=== PATIENT | male | born 1950 | race Caucasian/White ===

== ENCOUNTER → 2019-11-27 08:19 | Outpatient (BNVA) | payer MEDICARE, OTHER, SELFPAY | PROVIDERS: Family Provider Family Medicine; PCP Family Medicine; Visit Provider Internal Medicine Cardiovascular Disease | DX: E78.2 Mixed hyperlipidemia (principal) | CPT/HCPCS: 80061; 80076 ==

== ENCOUNTER 2020-06-02 10:14 | Outpatient (CLI) | payer MEDICARE, OTHER, SELFPAY ==
--- NOTE | 2020-06-02 10:38 | XR_ITS ---
WS: [id number] HIP WITH PELVIS RIGHT TECHNIQUE: 3 views of the right hip with pelvis CLINICAL INFORMATION: PAIN IN RIGHT HIP COMPARISON: None. FINDINGS: Mild osteoarthritis right hip. No acute fractures. Osteopenia. XR/XR hip RT 2-3V wo/w pel* [id number] IMPRESSION: Mild degenerative arthritis right hip.
== END 2020-06-02 10:15 | disposition home or self-care (01) ==
LOC: RADWPI 10:17
PROVIDERS: Family Provider Family Medicine; PCP Family Medicine; Visit Provider Nurse Practitioner Family
DX: M16.11 Unilateral primary osteoarthritis, right hip (principal)
CPT/HCPCS: 73502

== ENCOUNTER 2020-07-29 06:00 | Outpatient (RCR) | payer MEDICARE, OTHER, SELFPAY | END 2020-08-18 23:59 | disposition home or self-care (01) | LOC: SPT 06:00 | PROVIDERS: Family Provider Family Medicine; PCP Family Medicine; Referring Provider Physical Medicine & Rehabilitation; Visit Provider Physical Medicine & Rehabilitation | DX: R29.898 Other symptoms and signs involving the musculoskeletal system (principal); M54.16 Radiculopathy, lumbar region; M62.81 Muscle weakness (generalized) | CPT/HCPCS: 97110; 97162; G0283 ==

== ENCOUNTER 2020-08-19 06:00 | Outpatient (RCR) | payer MEDICARE, OTHER, SELFPAY | END 2020-08-29 23:00 | disposition home or self-care (01) | LOC: SPT 06:00 | PROVIDERS: Family Provider Family Medicine; PCP Family Medicine; Referring Provider Physical Medicine & Rehabilitation; Visit Provider Physical Medicine & Rehabilitation | DX: M54.16 Radiculopathy, lumbar region (principal); M62.81 Muscle weakness (generalized) | CPT/HCPCS: 97110 ==

== ENCOUNTER → 2020-10-09 08:25 | Outpatient (BNVA) | payer MEDICARE, OTHER, SELFPAY | PROVIDERS: Family Provider Family Medicine; PCP Family Medicine; Visit Provider Internal Medicine Cardiovascular Disease | DX: E78.2 Mixed hyperlipidemia (principal) | CPT/HCPCS: 80061 ==

== ENCOUNTER → 2021-07-07 08:44 | Outpatient (BNVA) | payer MEDICARE, OTHER, SELFPAY | PROVIDERS: Family Provider Family Medicine; PCP Nurse Practitioner; Visit Provider Internal Medicine Cardiovascular Disease | DX: E78.5 Hyperlipidemia, unspecified (principal) | CPT/HCPCS: 80061 ==

== ENCOUNTER 2021-08-03 11:07 | Outpatient (CLI) | payer MEDICARE, OTHER, SELFPAY ==
[2021-08-03 11:41] VITALS: BMI 28.3
--- NOTE | 2021-08-03 11:42 | ECG_ITS ---
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 Interpretive Statements NAME OF STUDY: TREADMILL STRESS ECHOCARDIOGRAM INDICATION: Athrosclerotic Heart Disease PROCEDURE: At the baseline, the patient's blood pressure was 135/87 with a heart rate of 91. The baseline electrocardiogram showed normal sinus rhythm with normal ST-Ts. Poor R wave progression. The patient exercised for 8 minutes and 31 seconds on a standard Anjum protocol. Patient attained a maximum heart rate of 140 beats per minute( 94 % of the maximum predicted heart rate) with a blood pressure at the peak exercise of 203/96 mm Hg. The EKG at the peak exercise revealed no significant ST changes. Few exercise-induced PVCs are noted on the monitor. During the recovery phase, there were no new changes. Blood pressure at the end of the recovery phase was 125/70 mm Hg with a heart rate of 95 per minute. Echocardiographic pictures were taken at the baseline, immediately following the peak exercise and during the recovery phase. CONCLUSION: 1. Normal EKG response to treadmill exercise 2. No exercise-induced chest pain or cardiac arrhythmia 3. Fair exercise tolerance, attained a maximum of 10.2 METs 4. Please see separate report for the echocardiographic response to exercise. Electronically Signed On 08-04-2021 22:22:48 MAILROOM ASSISTANT by Jovita Castle M.D. [id number]
--- NOTE | 2021-08-03 12:15 | USCV_ITS ---
Stress Echo Jamal Castillo Age: 71 Gender: M : 1950 Exam Date: 08/03/2021 11:54 Ordering Phys: Jovita Castle MD ([email or web address]) Technologist: Andreina Dubois [place] [facility] [place]ication: ashd Rhythm: Sinus Patient History: ashd Cardiac Medications: Medications in past 24 hours: Aspirin, Statin Contrast: Stress Results Protocol: Anjum Total dose(mL): Exercise Duration (min:sec): 8:31 METS: 10.2 Resting HR: 91 Resting BP: 135 / 87 Peak HR: 140 Peak BP: 203 / 104 Max Predicted HR: 148 95 % Max Predicted HR Target HR: 126 Double Product: [id number] Stress Summary: The patient's target heart rate was achieved BP Response: Normal Reason for Termination: Maximal effort/unable to continue Cardiac Symptoms: None ECG Analysis Resting ECG: Please see separate report Stress ECG: Please see separate report Arrhythmia: Please see separate report MEASUREMENTS (Male/Female) Normal Values FINDINGS The baseline echocardiogram revealed normal LV size and ejection fraction around 55% no gross wall motion normalities are noted. The aortic root was of normal size. No pericardial effusion. Paroxysmal nocturnal dyspnea peak exercise, there is good augmentation of all the segments with a normal exercise-induced wall motion abnormalities. During the recovery phase, no new changes are noted. CONCLUSIONS 1. Normal echocardiographic response to treadmill exercise. 2. No significant coronary ischemia, based on the above finding Dr Jovita Castle MD FAC (Electronically Signed) Final Date: 03 August 2021 21:18 S
[2021-08-03 13:19] VITALS: BP 125/70; PULSE 94
== END 2021-08-03 11:08 | disposition home or self-care (01) ==
LOC: CDL 11:10
PROVIDERS: PCP Nurse Practitioner; Visit Provider Internal Medicine Cardiovascular Disease
DX: I25.10 Atherosclerotic heart disease of native coronary artery without angina pectoris (principal)
CPT/HCPCS: 93017; 93350

== ENCOUNTER → 2022-07-01 09:35 | Outpatient (BNVA) | payer MEDICARE, OTHER, SELFPAY | PROVIDERS: PCP Nurse Practitioner; Visit Provider Internal Medicine Cardiovascular Disease | DX: I25.10 Atherosclerotic heart disease of native coronary artery without angina pectoris (principal); I10 Essential (primary) hypertension; I25.2 Old myocardial infarction; E78.2 Mixed hyperlipidemia; Z98.890 Other specified postprocedural states | CPT/HCPCS: 93005; 99214 ==

== ENCOUNTER 2023-06-27 11:59 | Outpatient (RCR) | payer MEDICARE, OTHER, SELFPAY | END 2023-07-19 23:59 | disposition home or self-care (01) | LOC: SPT 11:59 | PROVIDERS: Visit Provider Physical Medicine & Rehabilitation | DX: M47.812 Spondylosis without myelopathy or radiculopathy, cervical region (principal); M75.41 Impingement syndrome of right shoulder; M54.12 Radiculopathy, cervical region; R20.0 Anesthesia of skin | CPT/HCPCS: 97110; 97140; 97162 ==

== ENCOUNTER → 2023-06-30 10:43 | Outpatient (BNVA) | payer MEDICARE, OTHER, SELFPAY | PROVIDERS: Visit Provider Internal Medicine Cardiovascular Disease | DX: R07.9 Chest pain, unspecified (principal); I25.10 Atherosclerotic heart disease of native coronary artery without angina pectoris; I10 Essential (primary) hypertension; E78.2 Mixed hyperlipidemia; Z98.890 Other specified postprocedural states | CPT/HCPCS: 93005; 99214 ==

== ENCOUNTER 2023-07-15 13:54 | Emergency (ER) | payer MEDICARE, OTHER, SELFPAY ==
[2023-07-15 14:05] VITALS: BP 168/99; PULSE 88; RESP 18; TEMP 36.6; O2SAT 96; BMI 29.0
--- NOTE | 2023-07-15 15:30 | W.ED.NEUROSD ---
HPI - Neuro Symptoms/Deficit General: Chief Complaint: Neuro Symptoms/Deficit Stated Complaint: possible TIA Time Seen by Provider: 07/15/23 14:37 Source: patient Mode of arrival: ambulatory History of Present Illness: 73-year-old male presents to the emergency room with complaints of near syncopal episode earlier today. He was at physical therapy at the time he was rotating his head to the left and right holding a position at the end of range of motion and had a brief episode where he seemed to nonresponsive estimated about 30 seconds that resolved he had no sequela since then he has not had any chest pain. No fevers sweats or chills. No nausea or vomiting. He does have a history of heart disease. He is currently on a statin aspirin and Plavix. No other symptoms no seizure-like activity Onset (ago): hour(s) Severity: similar to previous episodes Quality: other (Briefly nonresponsive) Relieving factors: none Exacerbating factors: none Context: sudden onset On Anticoagulants: No Associated symptoms: Deny chest pain, cough, diaphoresis, fevers/chills, headache(s), anorexia, malaise, nausea, seizures, short of breath, syncope, tingling, vertigo, vomiting or weakness Review of Systems Const: Denies: fever(s), chills, malaise or diaphoresis Card: Denies: chest pain or syncope Resp: Denies: dyspnea GI: Denies: abdominal pain, nausea or vomiting : Denies: dysuria, urinary frequency or urinary urgency Musc: Denies: neck pain or back pain Skin/Breast: Denies: rash Neuro: Denies: headache(s) or vertigo PFS ED PFSH: Medical History ASHD (arteriosclerotic heart disease) Hyperlipidemia Hypertension Myocardial infarction Surgical History H/O arthroscopic knee surgery History of varicose vein stripping Family History Father CAD (coronary artery disease) Brother Cancer Denies family history of Diabetes Clotting disorder Dementia Chronic kidney disease (CKD) Suicide Anesthesia complication Bleeding disorder Lung disease Stroke Social History Smoking and tobacco/nicotine status: never used tobacco/nicotine Alcohol intake: current Alcohol intake frequency: holidays/special occasions only Substance/Drug Use: never NIH stroke score NIHSS: Level Of Consciousness - 1a: 0 Level Of Consciousness Questions - 1b: Both Correct Level Of Consciousness Commands - 1c: Both Correct Best Gaze - 2: Normal Visual Goodman - 3: No Visual Loss Facial Palsy - 4: Normal Motor Arm Right - 5: No Drift Motor Arm Left - 5: No Drift Motor Leg Right - 6: No Drift Motor Leg Left - 6: No Drift Limb Ataxia - 7: Absent Sensory - 8: Normal Best Language - 9: No Aphasia Dysarthia - 10: Normal Extinction And Inattention - 11: 0 Score: Total Score: 0 Physical Exam Const: COMMON NORMALS: no acute distress GENERAL APPEARANCE: cooperative and comfortable ORIENTATION/CONSCIOUSNESS: Yes awake, Yes oriented to person, Yes oriented to place and Yes oriented to time HENMT: COMMON NORMALS: normocephalic, atraumatic and hearing grossly normal bilaterally HEAD & SCALP: normocephalic and atraumatic Resp: COMMON NORMALS: normal respiratory effort, No retractions, No use of accessory muscles and clear to auscultation bilaterally AUSCULTATION: clear to auscultation bilaterally Cardio: COMMON NORMALS: regular rate, regular rhythm and No murmurs present (Cardio) RATE: regular rate RHYTHM: regular rhythm GI: COMMON NORMALS: Soft to palpation and No hepatosplenomegaly present AUSCULTATION: Yes normoactive bowel sounds PALPATION: Yes Soft to palpation, No Tenderness to palpation present (GI), No Guarding due to palpation present (GI) and Yes No hepatosplenomegaly present Extremity: COMMON NORMALS: normal to inspection, capillary refill normal, no clubbing, cyanosis or edema, no calf tenderness and no pedal edema Neuro: SENSORIUM/ORIENTATION: Yes oriented to person, Yes oriented to place and Yes oriented to time Skin: COMMON NORMALS: no rashes or lesions noted GENERAL SKIN EXAM: no rashes or lesions noted Course Vital Signs: Vital signs: Vital Signs Temperature 97.9 F 07/15/23 14:05 Pulse Rate 83 07/15/23 16:04 Respiratory Rate 18 07/15/23 14:05 Blood Pressure 144/78 07/15/23 16:04 Pulse Oximetry 96 07/15/23 14:05 Oxygen Delivery Me thod Room Air 07/15/23 14:05 MDM - Neuro Symptoms/Deficit Medical Decision Making No new symptoms at this time while he does have some residual symptoms from his previous stroke he and his both agree at this point he is pretty much at his baseline. No significant findings on evaluation. No acute bleed on the CT. He is already on dual platelet therapy and statin continue same for now. Follow-up as neurology. Medical Records I reviewed the patient's medical records. Lab Data I reviewed the patient's lab results. 07/15/23 13:50 07/15/23 13:[address] 07/15/23 15:31 IMPRESSION: No acute intracranial abnormality. Chronic microvascular ischemic changes. Head/Neck CTA 07/15/23 15:50 IMPRESSION: No acute abnormality. Moderate to severe stenosis of the left internal carotid artery in the cavernous portion by calcified plaque. IMPRESSION: No stenosis or occlusion. REFERENCES: NASCET CRITERIA. The degree of stenosis in the cervical segment of the internal carotid artery is based on NASCET criteria. Normal is no stenosis. Mild is less than 50% stenosis. Moderate is 50-69% stenosis. Severe is 70% to 99% stenosis. Total occlusion is no detectable patent lumen. Laboratory Results WBC 7.20 10^3/uL (3.29-11.43) 07/15/23 13:50 RBC 4.95 10^6/uL (3.85-5.65) 07/15/23 13:50 Hgb 14.20 g/dL (11.27-16.99) 07/15/23 13:50 Hct 43.1 % (37-53) 07/15/23 13:50 MCV 87.1 fl (82-101) 07/15/23 13:50 MCH 28.7 pg (27-33) 07/15/23 13:50 MCHC 32.9 g/dL (30-55) 07/15/23 13:50 RDW 14.6 % (12.1-15.1) 07/15/23 13:50 Plt Count 235 10^3/cmm (157-399) 07/15/23 13:50 MPV 10.2 fL (7.4-10.4) 07/15/23 13:50 Neut % (Auto) 69.0 % 07/15/23 13:50 Lymph % (Auto) 19.4 % 07/15/23 13:50 Polk % (Auto) 7.5 % 07/15/23 13:50 Eos % (Auto) 3.1 % 07/15/23 13:50 Baso % (Auto) 0.7 % 07/15/23 13:50 Neut # (Auto) 4.97 10^3/uL (1.8-7.7) 07/15/23 13:50 Lymph # (Auto) 1.4 10^3/uL (0.8-4.8) 07/15/23 13:50 Polk # (Auto) 0.5 10^3/uL (0.2-0.9) 07/15/23 13:50 Eos # (Auto) 0.2 10^3/uL (0.0-0.8) 07/15/23 13:50 Baso # (Auto) 0.1 10^3/uL (0.0-0.1) 07/15/23 13:50 Nucleated RBC % (auto) 0 % 07/15/23 13:50 Nucleated RBCs # 0.0 /100WBC 07/15/23 13:50 Sodium 139 mmol/L (136-145) 07/15/23 13:50 Potassium 4.0 mmol/L (3.5-5.1) 07/15/23 13:50 Chloride 102 mmol/L (98-107) 07/15/23 13:50 Carbon Dioxide 26 mmol/L (22-29) 07/15/23 13:50 Anion Gap 15.0 (5-19) 07/15/23 13:50 BUN 14 mg/dL (8-23) 07/15/23 13:50 Creatinine 0.8 mg/dL (0.7-1.2) 07/15/23 13:50 GFR Calculation Not Reportable 07/15/23 13:50 Glucose 151 mg/dL (65-115) H 07/15/23 13:50 Calculated Osmolality 291 mOsm/kg (285-295) 07/15/23 13:50 Calcium 9.5 mg/dL (8.5-10.5) 07/15/23 13:50 Total Bilirubin 0.8 mg/dL (0.15-1.2) 07/15/23 13:50 AST 13 U/L (0-40) 07/15/23 13:50 ALT 9 U/L (0-41) 07/15/23 13:50 Alkaline Phosphatase 109 U/L (40-130) 07/15/23 13:50 Total Protein 7.2 g/dL (6.6-8.7) 07/15/23 13:50 Albumin 4.2 g/dL (3.5-5.2) 07/15/23 13:50 Globulin 3.0 g/dL (1.3-4.6) 07/15/23 13:50 Urine Color Yellow (Yellow) 07/15/23 16:32 Urine Appearance Clear (CLEAR) 07/15/23 16:32 Urine pH 5 (5-7) 07/15/23 16:32 Ur Specific [place] 1.015 (1.005-1.030) 07/15/23 16:32 Urine Protein Neg (Negative) 07/15/23 16:32 Urine Glucose (UA) Norm (Normal) 07/15/23 16:32 Urine Ketones Negative (Negative) 07/15/23 16:32 Urine Blood Neg (Negative) 07/15/23 16:32 Urine Nitrate Negative (Negative) 07/15/23 16:32 Urine Bilirubin Neg (Negative) 07/15/23 16:32 Urine Urobilinogen Norm mg/dL (Negative) 07/15/23 16:32 Ur Leukocyte Esterase Negative (Negative) 07/15/23 16:32 All radiology interpretation(s) finalized by discharge Discharge Plan Discharge Patient Disposition: Home Clinical Impression: Transient cerebral ischemia, ASHD (arteriosclerotic heart disease) Condition: Stable Prescriptions: No Action omeprazole 40 mg capsule,delayed release(DR/EC) 40 mg PO QAM atorvastatin 20 mg tablet 20 mg PO QPM clopidogrel 75 mg tablet 75 mg PO QPM aspirin [Adult Low Dose Aspirin] 81 mg tablet,delayed release (DR/EC) 81 mg PO QPM nitroglycerin 0.4 mg tablet, sublingual 0.4 mg sublingual Q5M PRN (Reason: chest pain) tamsulosin 0.4 mg capsule 0.4 mg PO BEDTIME losartan 50 mg tablet 50 mg PO QPM Discharge Orders: Discharge ED (Routine); Ordered 07/15/23 Ordered By: Kb Felix Referrals: Latrice Erazo FNP [Primary Care Provider] - Discharge Diet: Usual diet Patient Instructions: Opioid Safety, Pain Management Activity Restrictions/Additional Instructions: Thank you for choosing [facility] for your healthcare needs today. Please realize this is an emergency room and that we are providing you with a medical screening exam and this may not be complete and all inclusive of all the testing and or work up that you may need to determine your ailment or severity of your illness. It is very important that you follow up as instructed or that you return to the Emergency Department should you have concerns or if your condition changes or worsens in any way. CT and CTA of the head and neck were done. There is some mild occlusions in the vessels in the neck none that are stenotic at this point. 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 Coding Level of Care Code ED Hall Monitor for Brittney Srinivasan
--- NOTE | 2023-07-15 15:31 | ECG_ITS ---
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 Measurements Intervals [place] Rate: 83 P: 59 OR: 188 QRS: -17 QRSD: 99 T: 69 QT: 370 QTc: 437 Interpretive Statements SINUS RHYTHM NONSPECIFIC T-WAVE ABNORMALITY Compared to ECG 06/30/2023 10:50:12 T-wave abnormality now present Electronically Signed On 07-15-2023 16:25:40 CDT by Gisela Edmonds M.D. [id number]
--- NOTE | 2023-07-15 15:31 | CTR_ITS ---
PROCEDURE INFORMATION: Exam: CT Head Without Contrast Exam date and time: 07/15/2023 3:41 PM Age: 73 years old Clinical indication: Visual disturbance and walking, difficulty; Additional info: TIA TECHNIQUE: Imaging protocol: Computed tomography of the head without contrast. Radiation optimization: All CT scans at this facility use at least one of these dose optimization techniques: automated exposure control; mA and/or kV adjustment per patient size (includes targeted exams where dose is matched to clinical indication); or iterative reconstruction. REPORTING DATA: Count of CT and Cardiac NM exams in prior 12 months: This patient has received 0 known CTs and 0 known cardiac nuclear medicine studies in the 12 months prior to the current study. COMPARISON: CT head wo con* [id number] 08/29/2019 6:26 PM RADIATION DOSE METRICS: Total DLP (mGy-cm): 1060.45 FINDINGS: Brain: There are mild periventricular and subcortical lucencies consistent with chronic microvascular ischemic changes.The al-white differentiation is maintained. No hemorrhage. No edema. Cerebral ventricles: No ventriculomegaly. Paranasal sinuses: Visualized sinuses are unremarkable. No fluid levels. Mastoid air cells: Visualized mastoid air cells are well aerated. Orbital cavities: Bilateral cataract surgery. Bones/joints: Unremarkable. No acute fracture. Soft tissues: Unremarkable. CT/CT head wo con* [id number] IMPRESSION: No acute intracranial abnormality. Chronic microvascular ischemic changes.
--- NOTE | 2023-07-15 15:50 | CTR_ITS ---
PROCEDURE INFORMATION: Exam: CTA Head With Contrast, Arteriography Exam date and time: 07/15/2023 4:59 PM Age: 73 years old Clinical indication: Dizziness and giddiness and weakness; Additional info: TIA TECHNIQUE: Imaging protocol: Computed tomographic angiography of the head with contrast. Exam focused on the arteries. 3D rendering (Not supervised by radiologist): MIP and/or 3D reconstructed images were created by the technologist. Radiation optimization: All CT scans at this facility use at least one of these dose optimization techniques: automated exposure control; mA and/or kV adjustment per patient size (includes targeted exams where dose is matched to clinical indication); or iterative reconstruction. Contrast material: OMNIPAQUE 350; Contrast volume: 100 ml; Contrast route: INTRAVENOUS (IV); REPORTING DATA: Count of CT and Cardiac NM exams in prior 12 months: This patient has received 0 known CTs and 0 known cardiac nuclear medicine studies in the 12 months prior to the current study. COMPARISON: CT head wo con* [id number] 07/15/2023 3:41 PM RADIATION DOSE METRICS: Total DLP (mGy-cm): 497.46 FINDINGS: ANTERIOR CIRCULATION: Right internal carotid artery: Intracranial segment is patent with no significant stenosis. No aneurysm. Right middle cerebral artery: No occlusion or significant stenosis. No aneurysm. Right anterior cerebral artery: No occlusion or significant stenosis. No aneurysm. Left internal carotid artery: Moderate to severe stenosis in the cavernous portion of left internal carotid artery. Left middle cerebral artery: No occlusion or significant stenosis. No aneurysm. Left anterior cerebral artery: No occlusion or significant stenosis. No aneurysm. POSTERIOR CIRCULATION: Right vertebral artery: No occlusion or significant stenosis. No aneurysm. Left vertebral artery: No occlusion or significant stenosis. No aneurysm. Basilar artery: No occlusion or significant stenosis. No aneurysm. Right posterior cerebral artery: No occlusion or significant stenosis. No aneurysm. Left posterior cerebral artery: No occlusion or significant stenosis. No aneurysm. Brain: No definite mass, mass effect, or midline shift. Cerebral ventricles: No ventriculomegaly. Bones/joints: Unremarkable. No acute fracture. Soft tissues: Unremarkable. PROCEDURE INFORMATION: Exam: CTA Neck With Contrast Exam date and time: 07/15/2023 4:59 PM Age: 73 years old Clinical indication: Dizziness and giddiness and weakness; Additional info: TIA TECHNIQUE: Imaging protocol: Computed tomographic angiography of the neck with contrast. Exam focused on the cervical segments of the vasculature. 3D rendering (Not supervised by radiologist): MIP and/or 3D reconstructed images were created by the technologist. Radiation optimization: All CT scans at this facility use at least one of these dose optimization techniques: automated exposure control; mA and/or kV adjustment per patient size (includes targeted exams where dose is matched to clinical indication); or iterative reconstruction. Contrast material: OMNIPAQUE 350; Contrast volume: 100 ml; Contrast route: INTRAVENOUS (IV); REPORTING DATA: Count of CT and Cardiac NM exams in prior 12 months: This patient has received 0 known CTs and 0 known cardiac nuclear medicine studies in the 12 months prior to the current study. COMPARISON: CT head wo con* [id number] 07/15/2023 3:41 PM RADIATION DOSE METRICS: Total DLP (mGy-cm): 0.01 FINDINGS: Right common carotid artery: No stenosis. No dissection or occlusion. Right internal carotid artery: No stenosis of the extracranial segment. No dissection or occlusion. Right external carotid artery: No occlusion or stenosis of the origin. Left common carotid artery: No stenosis. No dissection or occlusion. Left internal carotid artery: No stenosis of the extracranial segment. No dissection or occlusion. Left external carotid artery: No occlusion or stenosis of the origin. Right vertebral artery: No stenosis. No dissection or occlusion. Left vertebral artery: No stenosis. No dissection or occlusion. Soft tissues: Normal. No significant soft tissue swelling. Bones/joints: No acute fracture. CT/CT angio headneck* [id number] IMPRESSION: No acute abnormality. Moderate to severe stenosis of the left internal carotid artery in the cavernous portion by calcified plaque. IMPRESSION: No stenosis or occlusion. REFERENCES: NASCET CRITERIA. The degree of stenosis in the cervical segment of the internal carotid artery is based on NASCET criteria. Normal is no stenosis. Mild is less than 50% stenosis. Moderate is 50-69% stenosis. Severe is 70% to 99% stenosis. Total occlusion is no detectable patent lumen.
[2023-07-15 15:58] LABS: Basophils # 0.1 10^3/uL (0.0-0.1); Basophils % 0.7 %; Eosinophils # 0.2 10^3/uL (0.0-0.8); Eosinophils % 3.1 %; Hematocrit 43.1 % (37-53); Lymphocytes # 1.4 10^3/uL (0.8-4.8); Lymphocytes % 19.4 %; Mean Corpuscular HGB Conc 32.9 g/dL (30-55); Mean Corpuscular Hemoglobin 28.7 pg (27-33); Mean Corpuscular Volume 87.1 fl (82-101); Mean Platelet Volume 10.2 fL (7.4-10.4); Monocytes # 0.5 10^3/uL (0.2-0.9); Monocytes % 7.5 %; Neutrophils # 4.97 10^3/uL (1.8-7.7); Nucleated Red Blood Cells % 0 %; Platelet Count 235 10^3/cmm (157-399); Red Blood Count 4.95 10^6/uL (3.85-5.65); Red Cell Distribution Width 14.6 % (12.1-15.1)
[2023-07-15 16:04] VITALS: BP 128/77; BP 144/78; BP 150/77; PULSE 83; PULSE 89; PULSE 99
[2023-07-15 16:24] LABS: Alanine Aminotransferase 9 U/L (0-41); Albumin Level 4.2 g/dL (3.5-5.2); Alkaline Phosphatase 109 U/L (40-130); Aspartate Amino Transferase 13 U/L (0-40); Blood Urea Nitrogen 14 mg/dL (8-23); Calcium 9.5 mg/dL (8.5-10.5); Carbon Dioxide 26 mmol/L (22-29); Chloride 102 mmol/L (98-107); Glucose 151 mg/dL (65-115); Osmolality Calculated 291 mOsm/kg (285-295); Sodium 139 mmol/L (136-145); Total Bilirubin 0.8 mg/dL (0.15-1.2); Total Protein 7.2 g/dL (6.6-8.7)
[2023-07-15] MEDS: iohexol 350 mg/mL 500 mL Btl (per mL) IV (16:33)
[2023-07-15 16:37] LABS: Add Urine Microscopic? NO; Charge for UA Resulting for Rev
[2023-07-15 16:44] LABS: Bilirubin Urine Neg (Negative); Blood Urine Neg (Negative); Glucose Urine UA Norm (Normal); Ketones Urine Negative (Negative); Leukocyte Esterase Urine Negative (Negative); Nitrate Urine Negative (Negative); Protein Urine Neg (Negative); Specific Gravity, Urine 1.015 (1.005-1.030); Urine Appearance Clear (CLEAR); Urine Color Yellow (Yellow); Urobilinogen Urine Norm (Negative); pH Urine 5 (5-7)
== END 2023-07-15 18:12 | disposition home or self-care (01) ==
PROVIDERS: Emergency Provider Family Medicine; PCP Nurse Practitioner Family
DX: G45.9 Transient cerebral ischemic attack, unspecified (principal); I25.10 Atherosclerotic heart disease of native coronary artery without angina pectoris; Z79.02 Long term (current) use of antithrombotics/antiplatelets; Z79.82 Long term (current) use of aspirin; E78.5 Hyperlipidemia, unspecified; I10 Essential (primary) hypertension; I25.2 Old myocardial infarction
CPT/HCPCS: 36415; 70450; 70496; 70498; 80053; 81003; 85025; 93005; 99285; Q9967

== ENCOUNTER 2023-08-03 12:00 | Outpatient (CLI) | payer MEDICARE, OTHER, SELFPAY ==
--- NOTE | 2023-08-03 12:02 | USCV_ITS ---
Jamal Castillo Age: 73 Gender: M : 1950 Exam Date: 08/03/2023 12:36 Ordering Phys: Kb Felix DO Technologist: CT Exam Location: [facility] [place] Indication: BP: 170 / 102 HR: 79 Rhythm: Sinus Technical Quality: Adequate MEASUREMENTS (Male / Female) Normal Values 2D ECHO LVOT Diameter 2.1 cm LV Ejection Fraction MOD 2C 49.7 % LV Ejection Fraction 2C AL 51.2 % LA Diameter 4.0 cm Aorta at Sinotubular Diameter 3.2 cm IVC Diameter 1.6 cm M-MODE Aortic Annulus Diameter 3.9 cm LA Ao Ratio MM 1.1 MV E Point Septal Separation 1.0 cm DOPPLER AV Peak Velocity 137.0 cm/s LVOT Peak Velocity 108.0 cm/s AV Area Cont Eq vti 3.1 cm squared AV Area Cont Eq pk 2.8 cm squared MV E' Velocity 9.0 cm/s TR Peak Velocity 90.0 cm/s TR Peak Gradient 3.2 mmHg TV Peak E Velocity 63.0 cm/s Right Atrial Pressure 3.0 mmHg Pulmonary Artery Systolic Pressu 6.2 mmHg PV Peak Velocity 116.0 cm/s FINDINGS Left Ventricle Normal left ventricular size and systolic function, EF 59 %. No regional wall motion abnormalities. Grade I/IV diastolic dysfunction (abnormal relaxation filling pattern), normal to mildly elevated filling pressures. Right Ventricle The right ventricle is normal in size and function. Right Atrium The right atrium is normal in size. Left Atrium The left atrium is normal in size. Mitral Valve No gross abnormalities noted Aortic Valve Thickened aortic valve. Tricuspid Valve Trace tricuspid valve regurgitation. Pulmonic Valve Trace pulmonary valve regurgitation. Pericardium Normal pericardium without effusion. Aorta Normal ascending aorta dimension. IVC The inferior vena cava appears normal. CONCLUSIONS Normal left ventricular size and systolic function, EF 59 %. No regional wall motion abnormalities. Grade I/IV diastolic dysfunction (abnormal relaxation filling pattern), normal to mildly elevated filling pressures. Thickened aortic valve. There is no pericardial effusion. There are no intracardiac masses. No similar previous studies are available for comparison Dr Jovita Castle MD [facility] (Electronically Signed) Final Date: 03 August 2023 22:41 S
== END 2023-08-03 12:01 | disposition home or self-care (01) ==
LOC: RAD 12:00
PROVIDERS: PCP Nurse Practitioner Family; Visit Provider Family Medicine
DX: G45.9 Transient cerebral ischemic attack, unspecified (principal); I51.89 Other ill-defined heart diseases; I35.8 Other nonrheumatic aortic valve disorders
CPT/HCPCS: 93306

== ENCOUNTER → 2023-08-17 08:40 | Outpatient (BNVA) | payer MEDICARE, OTHER, SELFPAY | PROVIDERS: PCP Nurse Practitioner Family; Referring Provider Family Medicine; Visit Provider Internal Medicine Cardiovascular Disease | DX: G45.9 Transient cerebral ischemic attack, unspecified (principal); R00.1 Bradycardia, unspecified; I49.1 Atrial premature depolarization; I49.3 Ventricular premature depolarization; I47.10 Supraventricular tachycardia, unspecified | CPT/HCPCS: 93225 ==

== ENCOUNTER → 2024-01-19 10:53 | Outpatient (BNVA) | payer MEDICARE, OTHER, SELFPAY | PROVIDERS: PCP Nurse Practitioner Family; Visit Provider Internal Medicine Cardiovascular Disease | DX: R07.9 Chest pain, unspecified (principal); I25.10 Atherosclerotic heart disease of native coronary artery without angina pectoris; E78.2 Mixed hyperlipidemia; I10 Essential (primary) hypertension; R61 Generalized hyperhidrosis; R55 Syncope and collapse | CPT/HCPCS: 93005; 99214 ==

== ENCOUNTER 2024-01-26 08:33 | Outpatient (CLI) | payer MEDICARE, OTHER, SELFPAY ==
--- NOTE | 2024-01-26 08:58 | ECG_ITS ---
[facility] Test Date: 2024-01-26 Pat Name: Jamal Castillo Department: Room: Gender: Male Residential Sales: Carol Naidu : 1950 Requested By: Jovita Castle Order Number: [id number] Irina MD: Jovita Castle M.D. Interpretive Statements NAME OF STUDY: EXERCISE SESTAMIBI STRESS TEST INDICATION: ASHD, PROCEDURE: The baseline electrocardiogram showed [normal sinus rhythm with normal ST Ts. Poor R wave progression . At the baseline, the patient's blood pressure was 137/79 mm Hg with a heart rate of 83. The patient exercised for 6 minutes and 59-second on a standard Anjum protocol. Patient attained a maximum heart rate of 136 beats per minute(93% of the maximum predicted heart rate) with a blood pressure at the peak exercise of 195/82 mm Hg. The EKG at the peak exercise revealed some nonspecific ST changes. Patient did not have any chest pain or any significant arrhythmis with the exercise Sestamibi was injected 1 minute prior to the peak exercise During the recovery phase, there were no new changes. Blood pressure at the end of the recovery phase was 154/75 mm Hg with a heart rate of 91 per minute. CONCLUSION: 1. Nonspecific EKG changes with the [treadmill exercise 2. No exercise-induced chest pain or cardiac arrhythmia 3. Fair exercise tolerance, attained a maximum of 10.2 METs 4. Sestamibi/Sestamibi perfusion results pending; see separate report. Electronically Signed On 01-28-2024 18:22:56 CDT by Jovita Castle M.D. [id number]
--- NOTE | 2024-01-26 08:58 | NMCV_ITS ---
NM estiven perf SPECT r/s* [id number] Jamal Castillo Age: 74 Gender: M : 1950 Exam Date: 01/26/2024 09:34 Ordering Phys: Jovita Castle MD ([email or web address]) Technologist: NIRALI Frances Exam Location: [facility] Indications: CORONARY ANGIOPLASTY STATUS STRESS TEST [facility] IMAGE PROTOCOL Rest/Stress 1 Exercise Day Radiopharmaceutical Dose (mCi) Administration Site Administered by Rest: Tc-99m 10.9 IV NIRALI Frances Sestamibi Stress:Tc-99m 32.8 IV NIRALI Mckeon Sestamibi Rest: 26-Jan-2024 60 Discovery 630 Stress: 26-Jan-2024 30 Discovery 630 Radiopharmaceutical was injected at 86 % maximum heart rate. Images obtained in supine and prone position. SPECT RESULTS Technical Quality: Excellent Raw Data Analysis: Normal Image Corrections: No attenuation or motion correction applied Summed Stress Score: 2 Summed Rest Score: 1 Summed Difference Score: 1 PERFUSION FINDINGS Small area of slightly decreased aseptic involving the mid inferior and mid inferolateral region. Subtle area reversibility was noted with the supine imaging, and the mid inferolateral region. However with the prone imaging, no significant reversible defects were noted. FUNCTIONAL RESULTS (calculated via Gated SPECT) Stress Image LV EF (%): 61 Stress EDV (mL):87 TID: 0.72 Stress ESV (mL):34 FUNCTIONAL FINDINGS: Segmental wall motion analysis revealing no gross wall motion abnormalities IMPRESSIONS 1. Myocardial perfusion imaging revealing small area of slightly decreased aseptic involving the mid inferolateral and mid inferior region with a subtle area reversibility, based on the polar plot. However with the SPECT imaging, no significant reversibility was noted. Most likely this is artifactual. 2. Normal LV ejection fraction of 61%. 3. LV wall motion analysis revealing no gross wall motion abnormalities. 4. Normal LV volume. Possibly no significant coronary ischemia, based on the above finding Dr Jovita Castle MD FACC (Electronically Signed) Final Date: 26 Jan 2024 12:52 S
[2024-01-26 08:59] VITALS: BMI 29.0
[2024-01-26 10:37] VITALS: BP 154/75; PULSE 92
== END 2024-01-26 08:34 | disposition home or self-care (01) ==
LOC: CDL 08:34
PROVIDERS: PCP Nurse Practitioner Family; Visit Provider Internal Medicine Cardiovascular Disease
DX: Z98.61 Coronary angioplasty status (principal)
CPT/HCPCS: 36415; 78452; 93017; A9500

== ENCOUNTER 2024-02-14 10:24 | Outpatient (RCR) | payer MEDICARE, OTHER, SELFPAY | END 2024-02-17 23:59 | disposition home or self-care (01) | LOC: SOT 10:24 | PROVIDERS: PCP Nurse Practitioner Family; Visit Provider Orthopaedic Surgery | DX: M79.642 Pain in left hand (principal); M79.641 Pain in right hand | CPT/HCPCS: 97110; 97166; 97530 ==

== ENCOUNTER 2024-02-18 06:00 | Outpatient (RCR) | payer MEDICARE, OTHER, SELFPAY | END 2024-03-18 23:59 | disposition home or self-care (01) | LOC: SOT 06:00 | PROVIDERS: PCP Nurse Practitioner Family; Visit Provider Orthopaedic Surgery | DX: M79.642 Pain in left hand (principal); M79.641 Pain in right hand | CPT/HCPCS: 97022; 97110 ==

== ENCOUNTER 2024-06-25 12:51 | Outpatient (CLI) | payer MEDICARE, OTHER, SELFPAY ==
--- NOTE | 2024-06-25 12:54 | MR_ITS ---
WS: [id number] MRI RIGHT SHOULDER HISTORY: RIGHT SHOULDER IMPINGEMENT COMPARISON: None available. TECHNIQUE: Multiplanar sequences of the shoulder joint are submitted. Moderate AC joint arthritis. AC joint osteophytes encroaching upon the supraspinatus tendon and muscl e. Small amount of fluid within the joint space. There is mild subacromial impingement. Moderate flui d in the subacromial-subdeltoid bursa. No os acromion. Normal position of the biceps tendon. Moderate degenerative changes at the glenohumeral joint. Joint space is narrowed with small osteophyt es at the glenoid and humeral head. Loss of cartilage involving the glenoid. Mild asymmetric widening of the superior glenohumeral joint. No significant rotator cuff muscle atrophy is identified. There is mild tendinopathy in the distal engel praspinatus tendon. No rotator cuff tendon tear. Mild fraying of the labrum. No labral tear. MR/MR shoulder RT wo con* [id number] IMPRESSION: 1. Moderate AC joint arthritis with narrowing and osteophytosis. Osteophytes e ncroach upon the supraspinatus muscle and tendon. 2. Mild subacromial impingement. 3. Fluid in the subacromial and subdeltoid bursa. 4. Mild tendinopathy in the supraspinatus tendon. No rotator cuff tendon tears . 5. Moderate degenerative changes at the glenohumeral joint. Loss of cartilage with asymmetric widening of the joint space. 6. No definite labral tears are identified.
== END 2024-06-25 12:52 | disposition home or self-care (01) ==
LOC: RAD 12:52
PROVIDERS: PCP Nurse Practitioner Family; Visit Provider Orthopaedic Surgery
DX: M19.011 Primary osteoarthritis, right shoulder (principal); M75.41 Impingement syndrome of right shoulder
CPT/HCPCS: 73221

== ENCOUNTER → 2024-07-25 09:43 | Outpatient (BNVA) | payer MEDICARE, OTHER, SELFPAY | PROVIDERS: PCP Nurse Practitioner Family; Visit Provider Internal Medicine Cardiovascular Disease | DX: I25.10 Atherosclerotic heart disease of native coronary artery without angina pectoris (principal); E78.2 Mixed hyperlipidemia; I10 Essential (primary) hypertension; Z98.890 Other specified postprocedural states | CPT/HCPCS: 99214 ==

== ENCOUNTER 2024-08-04 10:20 | Emergency (ER) | payer MEDICARE, OTHER, SELFPAY ==
[2024-08-04] VITALS (7 sets, daily range): BP systolic 121–125; BP diastolic 70–72; PULSE 45–60; RESP 18; TEMP 36.7; O2SAT 93–97; BMI 29.0
--- NOTE | 2024-08-04 10:51 | CTR_ITS ---
PROCEDURE INFORMATION: Exam: CT Cervical Spine Without Contrast Exam date and time: 08/04/2024 11:01 AM Age: 74 years old Clinical indication: Injury or trauma; Fall; Blunt trauma TECHNIQUE: Imaging protocol: Computed tomography of the cervical spine without contrast. Radiation optimization: All CT scans at this facility use at least one of these dose optimization techniques: automated exposure control; mA and/or kV adjustment per patient size (includes targeted exams where dose is matched to clinical indication); or iterative reconstruction. COMPARISON: CT angio headneck* [id number] 07/15/2023 4:59 PM RADIATION DOSE METRICS: Total DLP (mGy-cm): 1090.1 FINDINGS: Bones: Alignment and vertebral body heights are within normal limits. There is a mild compression deformity of the superior endplate of T2, further discussed in the thoracic spine report, dictated separately. No acute cervical spine fractures. Discs/Spinal canal/Neural foramina: There are mnjd-[id number]-[id number] diffuse degenerative changes producing multilevel foraminal stenosis and mild central spinal stenosis at C3-C4, C5-C6 and C6-C7. Lungs: A calcified granuloma is noted within the left upper lobe Soft tissues: Unremarkable. CT/CT cervical spin wo con* [id number] IMPRESSION: 1. No evidence of acute cervical spine fracture or subluxation. 2. [id number] cervical spondylosis
--- NOTE | 2024-08-04 10:51 | CTR_ITS ---
PROCEDURE INFORMATION: Exam: CT Head Without Contrast Exam date and time: 08/04/2024 11:01 AM Age: 74 years old Clinical indication: Injury or trauma; Fall; Blunt trauma (contusions or hematomas); Consciousness not specified TECHNIQUE: Imaging protocol: Computed tomography of the head without contrast. Radiation optimization: All CT scans at this facility use at least one of these dose optimization techniques: automated exposure control; mA and/or kV adjustment per patient size (includes targeted exams where dose is matched to clinical indication); or iterative reconstruction. COMPARISON: 1. CT angio headneck* [id number] 07/15/2023 4:[address] head wo con* [id number] 07/15/2023 3:41 PM RADIATION DOSE METRICS: Total DLP (mGy-cm): 1348.3 FINDINGS: Brain: There is decreased attenuation within the periventricular white matter suspicious for chronic microvascular ischemic changes. No hemorrhage. No mass effect. Cerebral ventricles: No ventriculomegaly. Paranasal sinuses: Visualized sinuses are unremarkable. No fluid levels. Mastoid air cells: Visualized mastoid air cells are well aerated. Bones: Unremarkable. No acute fracture. Soft tissues: Unremarkable. CT/CT head wo con* [id number] IMPRESSION: No acute intracranial abnormality.
--- NOTE | 2024-08-04 10:51 | CTR_ITS ---
PROCEDURE INFORMATION: Exam: CT Thoracic Spine Without Contrast Exam date and time: 08/04/2024 11:05 AM Age: 74 years old Clinical indication: Injury or trauma; Fall; Blunt trauma (contusions or hematomas) TECHNIQUE: Imaging protocol: Computed tomography of the thoracic spine without contrast. Radiation optimization: All CT scans at this facility use at least one of these dose optimization techniques: automated exposure control; mA and/or kV adjustment per patient size (includes targeted exams where dose is matched to clinical indication); or iterative reconstruction. COMPARISON: Lateral chest radiograph obtained on 08/13/2019. No other prior thoracic spine imaging available. RADIATION DOSE METRICS: Total DLP (mGy-cm): 1147.68 FINDINGS: Subtle nondisplaced fracture in the coronal plane through the anterosuperior aspect of T2 vertebral body (series 7, image 25; series 4, image 26). No gross involvement of the posterior vertebral cortex or the posterior elements. Slight loss of height involving a few midthoracic vertebra that appear chronic. No bony stenosis of the thoracic spinal canal is seen. Incidental note of multiple pulmonary granulomatous calcifications. Mild posterior basilar subpleural fibrosis and/or atelectasis also noted. CT/CT thoracic spin wo con* [id number] IMPRESSION: 1. Subtle acute nondisplaced fracture through the anterosuperior corner of T2 vertebral body. 2. Very slight loss of vertebral body height at several midthoracic levels appears chronic. Bones appear diffusely osteopenic.
[2024-08-04] MEDS: HYDROcodone-acetaminophen 5-325 mg Tablet 1 TAB PO (10:59)
--- NOTE | 2024-08-04 11:01 | ED_ITS ---
HPI - Fall General: Chief Complaint: Fall Stated Complaint: fall, head and back injury Time Seen by Provider: 08/04/24 10:42 Source: patient Mode of arrival: ambulatory Limitations: no limitations History of Present Illness: 74-year-old male states that he had fell off a 5 foot retaining wall backwards onto the ground. He states this happened just prior arrival he states he did hit his head states he had some neck and upper back pain since the fall denies any loss of consciousness denies headache but states he did hit his head pretty hard he is on Plavix. Denies any other injury he has been ambulatory Associated symptoms-after fall: Reports neck pain; Denies abdominal pain, chest pain or headache(s) Related Data Home Medications Medication Instructions Recorded Confirmed aspirin 81 mg tablet,delayed 81 mg PO QPM 07/03/20 07/15/23 release (Adult Low Dose Aspirin) atorvastatin 20 mg tablet 20 mg PO QPM 07/03/20 07/15/23 clopidogrel 75 mg tablet 75 mg PO QPM 07/03/20 07/15/23 omeprazole 40 mg capsule,delayed 40 mg PO QAM 07/03/20 07/15/23 release nitroglycerin 0.4 mg sublingual 0.4 mg sublingual Q5M PRN chest 07/02/21 07/15/23 tablet pain tamsulosin 0.4 mg capsule 0.4 mg PO BEDTIME 07/15/23 07/15/23 losartan 50 mg tablet 50 mg PO BID 10/18/23 Previous Rx's Medication Instructions Recorded metoprolol tartrate 25 mg tablet 12.5 mg (1/2 x 25 mg) PO BID #180 10/18/23 tabs amlodipine 2.5 mg tablet 2.5 mg PO DAILY #90 tabs 08/02/24 hydrocodone 5 mg-acetaminophen 325 1 tab PO Q6H PRN pain #14 tabs 08/04/24 mg tablet Allergies Allergy/AdvReac Type Severity Reaction Status Date / Time No Known Allergies Allergy Verified 08/04/24 10:40 Review of Systems Const: Denies: fever(s), chills, body aches or change in appetite ENMT: Denies: throat pain or dental pain Card: Denies: chest pain Resp: Denies: dyspnea GI: Denies: abdominal pain, nausea, vomiting or diarrhea Musc: Reports: neck pain and back pain Skin/Breast: Denies: rash Neuro: Denies: headache(s) PFSH ED PFSH: Medical History Myocardial infarction Hypertension ASHD (arteriosclerotic heart disease) Hyperlipidemia Surgical History H/O arthroscopic knee surgery History of varicose vein stripping Family History Father CAD (coronary artery disease) Brother Cancer Denies family history of Diabetes Clotting disorder Dementia Chronic kidney disease (CKD) Suicide Anesthesia complication Bleeding disorder Lung disease Stroke Social History Smoking and tobacco/nicotine status: never used tobacco/nicotine Alcohol intake: current Alcohol intake frequency: holidays/special occasions only Substance/Drug Use: never Physical Exam Const: COMMON NORMALS: no acute distress, patient oriented x3 and healthy appearing HENMT: COMMON NORMALS: normocephalic and atraumatic HEAD & SCALP: normocephalic and atraumatic Eye: COMMON NORMALS: Equal, round and reactive pupils present and EOMs intact bilaterally PUPIL: Yes Equal, round and reactive pupils present Neck/C-Spine: COMMON NORMALS: full ROM and supple Chest: COMMONS NORMALS: normal inspection of the chest and normal palpation of entire chest wall Resp: COMMON NORMALS: normal respiratory effort, No retractions, No use of accessory muscles and clear to auscultation bilaterally AUSCULTATION: clear to auscultation bilaterally Cardio: COMMON NORMALS: regular rate, regular rhythm and No murmurs present (Cardio) RATE: regular rate RHYTHM: regular rhythm GI: COMMON NORMALS: Normal to inspection, nondistended, normoactive bowel sounds present, Soft to palpation, non-tender and no masses PALPATION: Yes Soft to palpation Extremity: COMMON NORMALS: normal to inspection and full ROM Neuro: COMMON NORMALS: patient oriented x3, moves all extremities and no focal motor deficits Psych: COMMON NORMALS: mental status grossly normal, Normal thought process present and cooperative THOUGHT PROCESS: Normal thought process present Skin: COMMON NORMALS: no rashes or lesions noted and no wounds GENERAL SKIN EXAM: no rashes or lesions noted Course Vital Signs: Vital signs: Vital Signs Temperature 98.0 F 08/04/24 10:31 Pulse Rate 52 L 08/04/24 10:31 Respiratory Rate 18 08/04/24 10:31 Blood Pressure 121/70 08/04/24 10:31 Pulse Oximetry 96 08/04/24 10:31 Oxygen Delivery Me thod Room Air 08/04/24 10:31 MDM - Fall Medical Decision Making Patient presents here with T2 fracture from a fall I did speak to Dr. Liu he stable for discharge we will get him follow-up with him he is return if worsening he understands agrees to plan Medical Records I reviewed the patient's medical records. Lab Data Radiology Impressions Cervical Spine CT 08/04/24 10:51 IMPRESSION: 1. No evidence of acute cervical spine fracture or subluxation. 2. Yhca-xy-fxthbutz cervical spondylosis Head CT 08/04/24 10:51 IMPRESSION: No acute intracranial abnormality. Thoracic Spine CT 08/04/24 10:51 IMPRESSION: 1. Subtle acute nondisplaced fracture through the anterosuperior corner of T2 vertebral body. 2. Very slight loss of vertebral body height at several midthoracic levels appears chronic. Bones appear diffusely osteopenic. All radiology interpretation(s) finalized by discharge Discharge Plan Discharge Patient Disposition: Home Clinical Impression: Fall, Fracture of thoracic spine Condition: Stable Prescriptions: New hydrocodone-acetaminophen 5-325 mg tablet 1 tab PO Q6H PRN (Reason: pain) Qty: 14 0RF No Action omeprazole 40 mg capsule,delayed release(DR/EC) 40 mg PO QAM atorvastatin 20 mg tablet 20 mg PO QPM clopidogrel 75 mg tablet 75 mg PO QPM aspirin [Adult Low Dose Aspirin] 81 mg tablet,delayed release (DR/EC) 81 mg PO QPM nitroglycerin 0.4 mg tablet, sublingual 0.4 mg sublingual Q5M PRN (Reason: chest pain) metoprolol tartrate 25 mg tablet 12.5 mg PO BID Qty: 180 3RF Rx Instructions: decreased to 12.5 from 25 10/18/23 losartan 50 mg tablet 50 mg PO BID Rx Instructions: increased to BID from daily 10/18/23 amlodipine 2.5 mg tablet 2.5 mg PO DAILY Qty: 90 3RF tamsulosin 0.4 mg capsule 0.4 mg PO BEDTIME Discharge Orders: Discharge ED (Routine); Ordered 08/04/24 Ordered By: Zachariah Maldonado Referrals: Marv Jay DO [Physician] - 4-7 days Erazo,JOSE MARTIN Pollard [Primary Care Provider] - Discharge Diet: Advance as tolerated Discharge Activity: Resume usual activity Patient Instructions: Thoracolumbar Fracture (ED), Opioid Safety Coding Level of Care Code ED Cruise Staff Member for Brittney Srinivasan
--- NOTE | 2024-08-06 09:13 | DCPLANNER ---
messaged ortho for er f/u
== END 2024-08-04 12:01 | disposition home or self-care (01) ==
PROVIDERS: Emergency Provider Emergency Medicine; PCP Nurse Practitioner Family
DX: S22.021A Stable burst fracture of second thoracic vertebra, initial encounter for closed fracture (principal); W17.89XA Other fall from one level to another, initial encounter; Z79.82 Long term (current) use of aspirin; I10 Essential (primary) hypertension; E78.5 Hyperlipidemia, unspecified; I25.2 Old myocardial infarction
CPT/HCPCS: 70450; 72125; 72128; 99284

== ENCOUNTER → 2024-08-09 12:46 | Outpatient (BNVA) | payer MEDICARE, OTHER, SELFPAY | PROVIDERS: PCP Nurse Practitioner Family; Referring Provider Emergency Medicine; Visit Provider Orthopaedic Surgery | DX: S22.020A Wedge compression fracture of second thoracic vertebra, initial encounter for closed fracture (principal); X58.XXXA Exposure to other specified factors, initial encounter | CPT/HCPCS: 72072; 99204 ==

== ENCOUNTER 2024-08-14 14:22 | Outpatient (CLI) | payer MEDICARE, OTHER, SELFPAY ==
--- NOTE | 2024-08-14 14:30 | MR_ITS ---
WS: [id number] MRI THORACIC SPINE WITHOUT CONTRAST TECHNIQUE: Sagittal T1, T2 and STIR imaging. Axial T2 imaging. Noncontrast imaging obtained. CLINICAL INFORMATION: spine frature COMPARISON: CT 08/04/2024 FINDINGS: Moderate thoracic kyphosis. Chronic anterior wedging in the midthoracic spine. Endplate Schmorl's nod es. Mild acute compression of the superior endplates of T1, T2, and T4. Approximately 20% loss vertebral body height at T4. Minimal compression at T1 and T2. No significant retropulsion. No significant central canal stenosis. Cord signal is normal. Adrenal glands are normal. Small to mod erate esophageal hiatal hernia. Normal caliber descending thoracic aorta. Moderate facet arthropathy lower thoracic spine. Shallow RIGHT paracentral protrusion T11-T12. MR/MR thoracic spin wo con* [id number] IMPRESSION: 1. Mild acute compression of the superior endplates T1, T2, and T4. 2. No significant central canal stenosis. 3. Cord signal is normal. 4. Small to moderate esophageal hernia.
== END 2024-08-14 14:23 | disposition home or self-care (01) ==
LOC: RAD 14:25
PROVIDERS: PCP Nurse Practitioner Family; Visit Provider Orthopaedic Surgery
DX: S22.020A Wedge compression fracture of second thoracic vertebra, initial encounter for closed fracture (principal); M40.204 Unspecified kyphosis, thoracic region; M51.44 Schmorl's nodes, thoracic region; M51.24 Other intervertebral disc displacement, thoracic region; M46.94 Unspecified inflammatory spondylopathy, thoracic region; X58.XXXA Exposure to other specified factors, initial encounter
CPT/HCPCS: 72146

== ENCOUNTER 2024-08-15 08:28 | Outpatient (CLI) | payer MEDICARE, OTHER, SELFPAY ==
--- NOTE | 2024-08-15 08:30 | MR_ITS ---
WS: [id number] MRI CERVICAL SPINE NONCONTRAST TECHNIQUE: Sagittal T1, T2 and STIR imaging. Axial T2, gradient, and fiesta imaging. CLINICAL INFORMATION: Thoratic spine fracture COMPARISON: MRI 2009 FINDINGS: Straightening of the normal cervical lordosis. Compression fracture superior end plates at T1 and T2 with edema and mild compression of the superior endplates. No retropulsion. No high-grade central can al stenosis in the cervical spine. C2-C3: Moderate LEFT and no significant RIGHT foraminal narrowing. Spinal canal is patent. Moderate f acet arthropathy. C3-C4: Mild disc osteophyte complex with endplate ridging. Moderate LEFT bony foraminal narrowing. Mo derate LEFT facet arthropathy. C4-C5: Disc osteophyte complex with endplate ridging. Severe bilateral bony foraminal narrowing. Mode rate facet arthropathy. Mild central canal stenosis. C5-C6: Disc osteophyte complex with endplate ridging. Severe bilateral bony foraminal narrowing. Mode rate facet arthropathy. C6-C7: Disc osteophyte complex with endplate ridging. Central disc osteophyte protrusion with mild ce ntral canal stenosis. Severe RIGHT greater than LEFT bony foraminal narrowing. Moderate facet arthrop athy. C7-T1: Spinal canal and foramen are patent. Visualized brain stem structures: Normal. Prevertebral soft tissues: Normal. MR/MR cervical spin wo con* [id number] IMPRESSION: 1. Compression fracture superior endplates at T1 and T2 with edema and mild c ompression of the superior endplates. No retropulsion. 2. No high-grade central canal stenosis. Cord signal is normal. 3. Small disc osteophyte protrusions with mild central canal stenosis C4-C5 C5 -C6 and C6-C7. 4. Multilevel moderate to severe bony foraminal narrowing worse at bilateral C 4-5, bilateral C5-C6, and bilateral C6-7.
== END 2024-08-15 08:29 | disposition home or self-care (01) ==
LOC: RAD 08:29
PROVIDERS: PCP Nurse Practitioner Family; Visit Provider Orthopaedic Surgery
DX: S22.020A Wedge compression fracture of second thoracic vertebra, initial encounter for closed fracture (principal); S22.010A Wedge compression fracture of first thoracic vertebra, initial encounter for closed fracture; M99.61 Osseous and subluxation stenosis of intervertebral foramina of cervical region; M25.78 Osteophyte, vertebrae; M47.892 Other spondylosis, cervical region; M50.20 Other cervical disc displacement, unspecified cervical region; X58.XXXA Exposure to other specified factors, initial encounter
CPT/HCPCS: 72141

== ENCOUNTER → 2024-09-04 11:50 | Outpatient (BNVA) | payer MEDICARE, OTHER, SELFPAY | PROVIDERS: PCP Nurse Practitioner Family; Visit Provider Internal Medicine Cardiovascular Disease | DX: R06.02 Shortness of breath (principal); I31.9 Disease of pericardium, unspecified; R07.89 Other chest pain | CPT/HCPCS: 36415; 80048; 84484; 85378; 93005 ==

== ENCOUNTER → 2024-09-06 15:05 | Outpatient (BNVA) | payer MEDICARE, OTHER, SELFPAY | PROVIDERS: PCP Nurse Practitioner Family; Visit Provider Orthopaedic Surgery | DX: Z09 Encounter for follow-up examination after completed treatment for conditions other than malignant neoplasm (principal) | CPT/HCPCS: 99213 ==

== ENCOUNTER 2024-09-07 12:09 | Emergency (ER) | payer MEDICARE, OTHER, SELFPAY ==
--- NOTE | 2024-09-07 12:24 | ECG_ITS ---
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 Measurements Intervals [place] Rate: 53 P: 33 [place]: 172 QRS: 44 QRSD: 85 T: 19 QT: 424 QTc: 401 Interpretive Statements SINUS BRADYCARDIA INTERPRETATION BASED ON A DEFAULT AGE OF 40 YEARS Compared to ECG 09/04/2024 12:01:58 Myocardial infarct finding no longer present Electronically Signed On 09-07-2024 19:44:27 INFANTRY ASSAULTMAN by Jovita Castle M.D. [email or web address]
[2024-09-07 12:29] VITALS: BP 124/80; PULSE 54; RESP 18; TEMP 36.8; O2SAT 96; BMI 29.0
--- NOTE | 2024-09-07 13:23 | CT_ITS ---
WS: [id number] CTA OF THE CHEST WITH PULMONARY EMBOLISM PROTOCOL TECHNIQUE: High-resolution contrast enhanced CTA of the chest with coronal and sagittal reformatted i mages with pulmonary embolism protocol. MIP images are also reviewed. CLINICAL INFORMATION: dyspnea, chest pain, elevated d dimer COMPARISON: None. DLP: 512.[address] scans at [facility] use at least one of these dose optimization techniques: automated e xposure control; mA and/or kV adjustment per patient size (includes targeted exams where dose is matc hed to clinical indication); or iterative reconstruction. FINDINGS: Proximal main pulmonary arteries are normal. Normal segmental subsegmental pulmonary arteries. No nicholas dence of pulmonary embolus. Subsegmental atelectasis in the lung bases. Subsegmental atelectasis in t he lingula. A few hazy opacities in the lung bases may be infectious or inflammatory. No focal pneumo lindy. Normal caliber thoracic aorta. Cardiac stents. Small esophageal hernia. No axillary lymphadenopathy. Cholelithiasis. Tiny LEFT adrenal adenoma measuring 6 mm. Normal pancreatic parenchymal enhancement. Celiac is patent in the upper abdomen. Moderate thoracic kyphosis. Compression fractures in the upper thoracic spine at T1, T2, and T4 described on the prior MRI. CT/CT angio chest PE protcl [id number] IMPRESSION: 1. No evidence of pulmonary embolus. 2. A few hazy groundglass opacities with subsegmental atelectasis in the lung bases may be infectious or inflammatory. No focal pneumonia. 3. Small esophageal hiatal hernia. 4. Similar-appearing compression fractures described on the prior MRI at T1, T 2, and T4. 5. Cholelithiasis.
[2024-09-07 14:01] VITALS: BP 116/69; PULSE 50; RESP 20; O2SAT 97
[2024-09-07 14:07] LABS: Basophils # 0.1 10^3/uL (0.0-0.1); Basophils % 0.7 %; Eosinophils # 0.2 10^3/uL (0.0-0.8); Eosinophils % 2.9 %; Hematocrit 40.7 % (37-53); Lymphocytes # 1.5 10^3/uL (0.8-4.8); Lymphocytes % 19.9 %; Mean Corpuscular HGB Conc 32.9 g/dL (30-55); Mean Corpuscular Hemoglobin 28.5 pg (27-33); Mean Corpuscular Volume 86.6 fl (82-101); Mean Platelet Volume 9.9 fL (7.4-10.4); Monocytes # 0.7 10^3/uL (0.2-0.9); Monocytes % 9.2 %; Neutrophils # 5.07 10^3/uL (1.8-7.7); Nucleated Red Blood Cells % 0 %; Platelet Count 217 10^3/cmm (157-399); Red Cell Distribution Width 14.2 % (12.1-15.1); White Blood Count 7.57 10^3/uL (3.29-11.43)
--- NOTE | 2024-09-07 14:13 | ED_ITS ---
HPI - SOB/Dyspnea 2 General: Chief Complaint: Shortness of Breath/Dyspnea Stated Complaint: dr castle reff, c- scan, possible blood clot lung Time Seen by Provider: 09/07/24 13:23 History of Present Illness: HPI Narrative: Presents to the ER for abnormal D-dimer done by Dr. Castle, patient says had shortness of breath and chest pain for about the last month. Patient fell off a retaining wall and hurt his chest upper back and neck. Patient is being followed by Dr. Jay for his neck. Patient also been having some mild shortness of breath it is causing his chest pain when takes a big deep breath. Related Data Home Medications Medication Instructions Recorded Confirmed aspirin 81 mg tablet,delayed 81 mg PO QPM 07/03/20 09/07/24 release (Adult Low Dose Aspirin) atorvastatin 20 mg tablet 20 mg PO QPM 07/03/20 09/07/24 clopidogrel 75 mg tablet 75 mg PO QPM 07/03/20 09/07/24 omeprazole 40 mg capsule,delayed 40 mg PO QAM 07/03/20 09/07/24 release nitroglycerin 0.4 mg sublingual 0.4 mg sublingual Q5M PRN chest 07/02/21 09/07/24 tablet pain tamsulosin 0.4 mg capsule 0.4 mg PO BEDTIME 07/15/23 09/07/24 losartan 50 mg tablet 50 mg PO BID 10/18/23 09/07/24 Previous Rx's Medication Instructions Recorded metoprolol tartrate 25 mg tablet 12.5 mg (1/2 x 25 mg) PO BID #180 10/18/23 tabs amlodipine 2.5 mg tablet 2.5 mg PO DAILY #90 tabs 08/02/24 Allergies Allergy/AdvReac Type Severity Reaction Status Date / Time No Known Allergies Allergy Verified 09/06/24 15:59 Review of Systems 2 General: Reports: 10 or more systems reviewed and unremarkable except in HPI and below PFSH ED 2 PFSH: Medical History Myocardial infarction Hypertension ASHD (arteriosclerotic heart disease) Hyperlipidemia Surgical History H/O arthroscopic knee surgery History of varicose vein stripping Family History Father CAD (coronary artery disease) Brother Cancer Denies family history of Diabetes Clotting disorder Dementia Chronic kidney disease (CKD) Suicide Anesthesia complication Bleeding disorder Lung disease Stroke Social History Smoking and tobacco/nicotine status: never used tobacco/nicotine Alcohol intake: current Alcohol intake frequency: holidays/special occasions only Substance/Drug Use: never Physical Exam 2 Const: COMMON NORMALS: no acute distress, average body habitus, patient oriented x3, no limitations, healthy appearing, alert and well nourished HENMT: COMMON NORMALS: normocephalic, atraumatic, hearing grossly normal bilaterally, external ears normal, Normal external nose present and moist oral mucous membranes HEAD & SCALP: normocephalic and atraumatic NOSE: Normal external nose present EXTERNAL EAR: Yes external ears normal Neck/C-Spine: COMMON NORMALS: no JVD Chest: COMMONS NORMALS: normal inspection of the chest and normal palpation of entire chest wall Resp: COMMON NORMALS: normal respiratory effort, No retractions, No use of accessory muscles and clear to auscultation bilaterally AUSCULTATION: clear to auscultation bilaterally Cardio: COMMON NORMALS: no JVD, regular rate, regular rhythm, S1 normal heart sound present, S2 normal heart sound present, No gallops present (Cardio), No clicks present (Cardio), No murmurs present (Cardio) and No rub (Cardio) R ATE: regular rate RHYTHM: regular rhythm HEART SOUNDS: S1 normal heart sound present and S2 normal heart sound present GI: COMMON NORMALS: Normal to inspection, nondistended, normoactive bowel sounds present, Soft to palpation, non-tender, No hepatosplenomegaly present and no masses PALPATION: Yes Soft to palpation and Yes No hepatosplenomegaly present Neuro: COMMON NORMALS: patient oriented x3 SENSORIUM/ORIENTATION: Yes alert Course 2 Vital Signs: Vital signs: Vital Signs Temperature 98.2 F 09/07/24 12:29 Pulse Rate 50 L 09/07/24 14:01 Respiratory Rate 20 H 09/07/24 14:01 Blood Pressure 116/69 09/07/24 14:01 Pulse Oximetry 97 09/07/24 14:01 Oxygen Delivery Me thod Room Air 09/07/24 14:01 MDM - SOB/Dyspnea Medical Decision Making Lab work was reviewed as well as chest CTA and no evidence of blood clot, no focal pneumonia, these results was discussed with the patient. Patient be discharged home. Medical Records I reviewed the patient's medical records. Lab Data I reviewed the patient's lab results. 09/07/24 14:02 09/07/24 14:02 Labs/Radiology: Radiology Impressions Chest CTA 09/07/24 13:23 IMPRESSION: 1. No evidence of pulmonary embolus. 2. A few hazy groundglass opacities with subsegmental atelectasis in the lung bases may be infectious or inflammatory. No focal pneumonia. 3. Small esophageal hiatal hernia. 4. Similar-appearing compression fractures described on the prior MRI at T1, T2, and T4. 5. Cholelithiasis. Laboratory Results WBC 7.57 10^3/uL (3.29-11.43) 09/07/24 14:02 RBC 4.70 10^6/uL (3.85-5.65) 09/07/24 14:02 Hgb 13.40 g/dL (11.27-16.99) 09/07/24 14:02 Hct 40.7 % (37-53) 09/07/24 14:02 MCV 86.6 fl (82-101) 09/07/24 14:02 MCH 28.5 pg (27-33) 09/07/24 14:02 MCHC 32.9 g/dL (30-55) 09/07/24 14:02 RDW 14.2 % (12.1-15.1) 09/07/24 14:02 Plt Count 217 10^3/cmm (157-399) 09/07/24 14:02 MPV 9.9 fL (7.4-10.4) 09/07/24 14:02 Neut % (Auto) 67.0 % 09/07/24 14:02 Lymph % (Auto) 19.9 % 09/07/24 14:02 [place] % (Auto) 9.2 % 09/07/24 14:02 Eos % (Auto) 2.9 % 09/07/24 14:02 Baso % (Auto) 0.7 % 09/07/24 14:02 Neut # (Auto) 5.07 10^3/uL (1.8-7.7) 09/07/24 14:02 Lymph # (Auto) 1.5 10^3/uL (0.8-4.8) 09/07/24 14:02 [place] # (Auto) 0.7 10^3/uL (0.2-0.9) 09/07/24 14:02 Eos # (Auto) 0.2 10^3/uL (0.0-0.8) 09/07/24 14:02 Baso # (Auto) 0.1 10^3/uL (0.0-0.1) 09/07/24 14:02 Nucleated RBC % (auto) 0 % 09/07/24 14:02 Nucleated RBCs # 0.0 /100WBC 09/07/24 14:02 Sodium 133 mmol/L (136-145) L 09/07/24 14:02 Potassium 4.6 mmol/L (3.5-5.1) 09/07/24 14:02 Chloride 96 mmol/L (98-107) L 09/07/24 14:02 Carbon Dioxide 26 mmol/L (22-29) 09/07/24 14:02 Anion Gap 15.6 (5-19) 09/07/24 14:02 BUN 12 mg/dL (8-23) 09/07/24 14:02 Creatinine 0.9 mg/dL (0.7-1.2) 09/07/24 14:02 GFR Calculation Not Reportable 09/07/24 14:02 Glucose 106 mg/dL (65-115) 09/07/24 14:02 Calculated Osmolality 276 mOsm/kg (285-295) L 09/07/24 14:02 Calcium 8.8 mg/dL (8.5-10.5) 09/07/24 14:02 Total Bilirubin 1.0 mg/dL (0.15-1.2) 09/07/24 14:02 AST 13 U/L (0-40) 09/07/24 14:02 ALT 9 U/L (0-41) 09/07/24 14:02 Alkaline Phosphatase 139 U/L (40-130) H 09/07/24 14:02 Troponin T Baseline 14 ng/L (0-15) 09/07/24 14:02 Total Protein 6.4 g/dL (6.6-8.7) L 09/07/24 14:02 Albumin 4.0 g/dL (3.5-5.2) 09/07/24 14:02 Globulin 2.4 g/dL (1.3-4.6) 09/07/24 14:02 All radiology interpretation(s) finalized by discharge Discharge Plan Discharge Patient Disposition: Home Clinical Impression: Chest wall pain, Shortness of breath Condition: Stable Prescriptions: No Action omeprazole 40 mg capsule,delayed release(DR/EC) 40 mg PO QAM atorvastatin 20 mg tablet 20 mg PO QPM clopidogrel 75 mg tablet 75 mg PO QPM aspirin [Adult Low Dose Aspirin] 81 mg tablet,delayed release (DR/EC) 81 mg PO QPM nitroglycerin 0.4 mg tablet, sublingual 0.4 mg sublingual Q5M PRN (Reason: chest pain) metoprolol tartrate 25 mg tablet 12.5 mg PO BID Qty: 180 3RF losartan 50 mg tablet 50 mg PO BID amlodipine 2.5 mg tablet 2.5 mg PO DAILY Qty: 90 3RF tamsulosin 0.4 mg capsule 0.4 mg PO BEDTIME Discharge Orders: Discharge ED (Routine); Ordered 09/07/24 Ordered By: Chucky Gilliam Referrals: Latrice Erazo FNP [Primary Care Provider] - 1 week Patient Instructions: Chest Pain - Chest Wall, Shortness of Breath (ED) Activity Restrictions/Additional Instructions: Thank you for choosing [facility] for your healthcare needs today. Please realize that you were seen in the emergency department and that we are providing you with an emergency medical screening exam and this may not be a complete and all exclusive of all testing and/or medical workup we may need to determine your element or severity of your illness. It is very important that you follow-up as instructed with your primary care provider or specialist for the additional evaluation and to discuss your medical treatment plan. You may return to the emergency department should you have concerns or if your condition changes or worsens in any way. Coding Level of Care Code ED Fire Extinguisher Sprinkler Inspector for Brittney Srinivasan
[2024-09-07] MEDS: iohexol 350 mg/mL 500 mL Btl (per mL) IV (14:21)
[2024-09-07 14:31] LABS: Alanine Aminotransferase 9 U/L (0-41); Alkaline Phosphatase 139 U/L (40-130); Anion Gap 15.6 (5-19); Aspartate Amino Transferase 13 U/L (0-40); Blood Urea Nitrogen 12 mg/dL (8-23); Calcium 8.8 mg/dL (8.5-10.5); Carbon Dioxide 26 mmol/L (22-29); Chloride 96 mmol/L (98-107); Creatinine Clr Calc Pharmacy 88.1272; Globulin 2.4 g/dL (1.3-4.6); Glucose 106 mg/dL (65-115); Osmolality Calculated 276 mOsm/kg (285-295); Potassium 4.6 mmol/L (3.5-5.1); Sodium 133 mmol/L (136-145); Total Protein 6.4 g/dL (6.6-8.7); Troponin(5th) Baseline 14 ng/L (0-15)
[2024-09-07 15:46] VITALS: BP 147/84; PULSE 50; RESP 16; O2SAT 96
== END 2024-09-07 15:48 | disposition home or self-care (01) ==
PROVIDERS: Emergency Provider Emergency Medicine; PCP Nurse Practitioner Family
DX: R07.89 Other chest pain (principal); R06.02 Shortness of breath; Z79.82 Long term (current) use of aspirin; Z79.02 Long term (current) use of antithrombotics/antiplatelets; I25.2 Old myocardial infarction; I10 Essential (primary) hypertension; E78.5 Hyperlipidemia, unspecified
CPT/HCPCS: 36415; 71275; 80053; 84484; 85025; 93005; 99285

== ENCOUNTER 2024-10-02 17:55 | Emergency (ER) | payer MEDICARE, OTHER, SELFPAY ==
[2024-10-02 18:10] VITALS: BP 168/85; PULSE 100; RESP 26; TEMP 37.7; O2SAT 94; BMI 29.0
--- NOTE | 2024-10-02 18:45 | XRR_ITS ---
PROCEDURE INFORMATION: Exam: XR Chest Exam date and time: 10/02/2024 6:56 PM Age: 74 years old Clinical indication: Cough and shortness of breath; Prior surgery; Surgery date: 6+ months; Surgery type: Cardiac stents; Additional info: SOB TECHNIQUE: Imaging protocol: Radiologic exam of the chest. Views: 1 view. COMPARISON: CT angio chest PE protcl [id number] 09/07/2024 2:18 PM FINDINGS: Lungs: No focal consolidation. Pleural spaces: No evidence of pneumothorax. No evidence of pleural effusion. Heart/Mediastinum: Cardiomediastinal silhouette is within normal limits. Bones/joints: No evidence of acute osseous abnormality. XR/XR chest 1V portable [id number] IMPRESSION: 1. No acute cardiopulmonary abnormality.
--- NOTE | 2024-10-02 19:21 | ECG_ITS ---
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 Measurements Intervals [place] Rate: 93 P: 44 ME: 175 QRS: -15 QRSD: 98 T: 55 QT: 341 QTc: 425 Interpretive Statements SINUS RHYTHM NONSPECIFIC T-WAVE ABNORMALITY Compared to ECG 09/07/2024 12:24:41 T-wave abnormality now present Sinus bradycardia no longer present Electronically Signed On 10-02-2024 23:50:26 FIRE MANAGEMENT SPECIALIST by Jovita Castle M.D. [id number]
--- NOTE | 2024-10-02 19:25 | ED_ITS ---
HPI - URI/Sore Throat 2 General: Chief Complaint: Upper Respiratory Infection Stated Complaint: Neck Pain to Shoulder\SOB Time Seen by Provider: 10/02/24 19:17 Source: patient Mode of arrival: ambulatory Limitations: no limitations History of Present Illness: 74-year-old male states for last 2 days has been having some cough congestion body aches with low-grade fevers. States has been having some back shoulder and neck pains as well. He denies any severe dyspnea states the cough has been dry in nature unknown if he had any sick contacts denies any worse improving factors Associated symptoms: Reports chills and fever(s); Deny abdominal pain, chest pain, diarrhea, headache(s), nausea or vomiting Related Data Home Medications Medication Instructions Recorded Confirmed aspirin 81 mg tablet,delayed 81 mg PO QPM 07/03/20 09/07/24 release (Adult Low Dose Aspirin) atorvastatin 20 mg tablet 20 mg PO QPM 07/03/20 09/07/24 clopidogrel 75 mg tablet 75 mg PO QPM 07/03/20 09/07/24 omeprazole 40 mg capsule,delayed 40 mg PO QAM 07/03/20 09/07/24 release nitroglycerin 0.4 mg sublingual 0.4 mg sublingual Q5M PRN chest 07/02/21 09/07/24 tablet pain tamsulosin 0.4 mg capsule 0.4 mg PO BEDTIME 07/15/23 09/07/24 losartan 50 mg tablet 50 mg PO BID 10/18/23 09/07/24 Previous Rx's Medication Instructions Recorded metoprolol tartrate 25 mg tablet 12.5 mg (1/2 x 25 mg) PO BID #180 10/18/23 tabs amlodipine 2.5 mg tablet 2.5 mg PO DAILY #90 tabs 08/02/24 Allergies Allergy/AdvReac Type Severity Reaction Status Date / Time No Known Allergies Allergy Verified 10/02/24 18:15 Review of Systems 2 Const: Reports: fever(s), chills and body aches; Denies: change in appetite Eyes: Denies: blurry vision or eye discomfort ENMT: Denies: throat pain or dental pain Card: Denies: chest pain Resp: Reports: dyspnea and non-productive cough GI: Denies: abdominal pain, nausea, vomiting or diarrhea : Denies: dysuria Musc: Reports: neck pain and back pain Skin/Breast: Denies: rash Neuro: Denies: headache(s) PFSH ED 2 PFSH: Medical History Myocardial infarction Hypertension ASHD (arteriosclerotic heart disease) Hyperlipidemia Surgical History H/O arthroscopic knee surgery History of varicose vein stripping Family History Father CAD (coronary artery disease) Brother Cancer Denies family history of Diabetes Clotting disorder Dementia Chronic kidney disease (CKD) Suicide Anesthesia complication Bleeding disorder Lung disease Stroke Social History Smoking and tobacco/nicotine status: never used tobacco/nicotine Alcohol intake: current Alcohol intake frequency: holidays/special occasions only Substance/Drug Use: never Physical Exam 2 Const: COMMON NORMALS: no acute distress, patient oriented x3 and healthy appearing HENMT: COMMON NORMALS: normocephalic and atraumatic HEAD & SCALP: n ormocephalic and atraumatic Eye: COMMON NORMALS: conjunctivae normal CONJUNCTIVA: Yes conjunctivae normal Neck/C-Spine: COMMON NORMALS: full ROM, supple and no meningeal signs Chest: COMMONS NORMALS: normal inspection of the chest and normal palpation of entire chest wall Resp: COMMON NORMALS: normal respiratory effort, No retractions, No use of accessory muscles and clear to auscultation bilaterally AUSCULTATION: clear to auscultation bilaterally Cardio: COMMON NORMALS: regular rate, regular rhythm and No murmurs present (Cardio) RATE: regular rate RHYTHM: regular rhythm Extremity: COMMON NORMALS: normal to inspection and full ROM Neuro: COMMON NORMALS: patient oriented x3, moves all extremities and no focal motor deficits MENINGEAL SIGNS: Yes no meningeal signs Psych: COMMON NORMALS: mental status grossly normal, Normal thought process present and cooperative THOUGHT PROCESS: Normal thought process present Skin: COMMON NORMALS: no rashes or lesions noted and no wounds GENERAL SKIN EXAM: no rashes or lesions noted Course 2 Vital Signs: Vital signs: Vital Signs Temperature 98.7 F 10/02/24 20:35 Pulse Rate 91 10/02/24 20:35 Respiratory Rate 26 H 10/02/24 18:10 Blood Pressure 108/69 10/02/24 20:35 Pulse Oximetry 94 10/02/24 20:35 Oxygen Delivery Me thod Room Air 10/02/24 20:35 MDM - URI/Sore Throat Medical Decision Making Patient presents here with cough congestion also some bodyaches. EKG x-ray here shows no pneumonia his white count is normal having some upper back and neck pain likely body aches he has no signs of meningitis here he feels much improved here after Motrin and his fevers improved he is stable for discharge his follow- up with PCP return if worsening. Medical Records I reviewed the patient's medical records. Lab Data I reviewed the patient's lab results. 10/02/24 20:30 10/02/24 19:55 Radiology Impressions Chest X-Ray 10/02/24 18:45 IMPRESSION: 1. No acute cardiopulmonary abnormality. Laboratory Results WBC 13.17 10^3/uL (3.29-11.43) H 10/02/24 20:30 Corrected WBC Cancelled 10/02/24 19:55 RBC 4.59 10^6/uL (3.85-5.65) 10/02/24 20:30 Hgb 13.00 g/dL (11.27-16.99) 10/02/24 20:30 Hct 39.4 % (37-53) 10/02/24 20:30 MCV 85.8 fl (82-101) 10/02/24 20:30 MCH 28.3 pg (27-33) 10/02/24 20:30 MCHC 33.0 g/dL (30-55) 10/02/24 20:30 RDW 14.4 % (12.1-15.1) 10/02/24 20:30 Plt Count 194 10^3/cmm (157-399) 10/02/24 20:30 MPV 9.6 fL (7.4-10.4) 10/02/24 20:30 Gran % Cancelled 10/02/24 19:55 Neut % (Auto) 92.8 % 10/02/24 20:30 Lymph % (Auto) 2.1 % 10/02/24 20:30 [place] % (Auto) 4.4 % 10/02/24 20:30 Eos % (Auto) 0.1 % 10/02/24 20:30 Baso % (Auto) 0.3 % 10/02/24 20:30 Neut # (Auto) 12.22 10^3/uL (1.8-7.7) H 10/02/24 20:30 Lymph # (Auto) 0.3 10^3/uL (0.8-4.8) L 10/02/24 20:30 [place] # (Auto) 0.6 10^3/uL (0.2-0.9) 10/02/24 20:30 Eos # (Auto) 0.0 10^3/uL (0.0-0.8) 10/02/24 20:30 Baso # (Auto) 0.0 10^3/uL (0.0-0.1) 10/02/24 20:30 Absolute Gran (auto) Cancelled 10/02/24 19:55 Nucleated RBC % (auto) 0 % 10/02/24 20:30 Nucleated RBCs # 0.0 /100WBC 10/02/24 20:30 Sodium 128 mmol/L (136-145) L 10/02/24 19:55 Potassium 4.2 mmol/L (3.5-5.1) 10/02/24 19:55 Chloride 95 mmol/L (98-107) L 10/02/24 19:55 Carbon Dioxide 22 mmol/L (22-29) 10/02/24 19:55 Anion Gap 15.2 (5-19) 10/02/24 19:55 BUN 10 mg/dL (8-23) 10/02/24 19:55 Creatinine 0.8 mg/dL (0.7-1.2) 10/02/24 19:55 GFR Calculation Not Reportable 10/02/24 19:55 Glucose 144 mg/dL (65-115) H 10/02/24 19:55 Calculated Osmolality 268 mOsm/kg (285-295) L 10/02/24 19:55 Calcium 9.0 mg/dL (8.5-10.5) 10/02/24 19:55 Total Bilirubin 1.4 mg/dL (0.15-1.2) H 10/02/24 19:55 AST 15 U/L (0-40) 10/02/24 19:55 ALT 10 U/L (0-41) 10/02/24 19:55 Alkaline Phosphatase 117 U/L (40-130) 10/02/24 19:55 Total Protein 7.4 g/dL (6.6-8.7) 10/02/24 19:55 Albumin 4.0 g/dL (3.5-5.2) 10/02/24 19:55 Globulin 3.4 g/dL (1.3-4.6) 10/02/24 19:55 Influenza Type A Ag Negative (Negative) 10/02/24 19:35 Influenza Type B Ag Negative (Negative) 10/02/24 19:35 SARS-CoV-2 Ag (Rapid) negative (Negative) 10/02/24 19:35 All radiology interpretation(s) finalized by discharge Discharge Plan Discharge Patient Disposition: Home Clinical Impression: Upper respiratory infection Condition: Stable Prescriptions: No Action omeprazole 40 mg capsule,delayed release(DR/EC) 40 mg PO QAM atorvastatin 20 mg tablet 20 mg PO QPM clopidogrel 75 mg tablet 75 mg PO QPM aspirin [Adult Low Dose Aspirin] 81 mg tablet,delayed release (DR/EC) 81 mg PO QPM nitroglycerin 0.4 mg tablet, sublingual 0.4 mg sublingual Q5M PRN (Reason: chest pain) metoprolol tartrate 25 mg tablet 12.5 mg PO BID Qty: 180 3RF losartan 50 mg tablet 50 mg PO BID amlodipine 2.5 mg tablet 2.5 mg PO DAILY Qty: 90 3RF tamsulosin 0.4 mg capsule 0.4 mg PO BEDTIME Discharge Orders: Discharge ED (Routine); Ordered 10/02/24 Ordered By: Zachariah Maldonado Referrals: Latrice Erazo FNP [Primary Care Provider] - Discharge Diet: Advance as tolerated Discharge Activity: Resume usual activity Patient Instructions: Upper Respiratory Infection (ED) Coding Level of Care Code ED Panelboard Operator for Brittney Srinivasan
[2024-10-02] MEDS: ibuprofen 800 mg tablet PO (19:49)
[2024-10-02 20:10] LABS: SARS Covid-2 Antigen negative (Negative)
[2024-10-02 20:20] LABS: Alanine Aminotransferase 10 U/L (0-41); Alkaline Phosphatase 117 U/L (40-130); Anion Gap 15.2 (5-19); Aspartate Amino Transferase 15 U/L (0-40); Blood Urea Nitrogen 10 mg/dL (8-23); Carbon Dioxide 22 mmol/L (22-29); Chloride 95 mmol/L (98-107); Creatinine Clr Calc Pharmacy 99.1431; Globulin 3.4 g/dL (1.3-4.6); Glucose 144 mg/dL (65-115); Osmolality Calculated 268 mOsm/kg (285-295); Potassium 4.2 mmol/L (3.5-5.1); Sodium 128 mmol/L (136-145); Total Bilirubin 1.4 mg/dL (0.15-1.2); Total Protein 7.4 g/dL (6.6-8.7)
[2024-10-02 20:22] LABS: Influenza A by IFA Negative (Negative); Influenza B by IFA Negative (Negative)
[2024-10-02 20:35] VITALS: BP 108/69; PULSE 91; TEMP 37.1; O2SAT 94
[2024-10-02 20:43] LABS: Basophils % 0.3 %; Eosinophils % 0.1 %; Hematocrit 39.4 % (37-53); Lymphocytes # 0.3 10^3/uL (0.8-4.8); Lymphocytes % 2.1 %; Mean Corpuscular Hemoglobin 28.3 pg (27-33); Mean Corpuscular Volume 85.8 fl (82-101); Mean Platelet Volume 9.6 fL (7.4-10.4); Monocytes # 0.6 10^3/uL (0.2-0.9); Monocytes % 4.4 %; Neutrophils # 12.22 10^3/uL (1.8-7.7); Neutrophils % 92.8 %; Nucleated Red Blood Cells % 0 %; Platelet Count 194 10^3/cmm (157-399); Red Blood Count 4.59 10^6/uL (3.85-5.65); Red Cell Distribution Width 14.4 % (12.1-15.1); White Blood Count 13.17 10^3/uL (3.29-11.43)
[2024-10-02 21:08] VITALS: BP 93/61; PULSE 90; TEMP 37.2; O2SAT 95
== END 2024-10-02 21:09 | disposition home or self-care (01) ==
PROVIDERS: Emergency Provider Emergency Medicine; PCP Nurse Practitioner Family
DX: J06.9 Acute upper respiratory infection, unspecified (principal); Z11.52 Encounter for screening for COVID-19; Z79.02 Long term (current) use of antithrombotics/antiplatelets; Z79.82 Long term (current) use of aspirin; E78.5 Hyperlipidemia, unspecified; I10 Essential (primary) hypertension
CPT/HCPCS: 36415; 71045; 80053; 85025; 87426; 87804; 93005; 99285

== ENCOUNTER → 2024-10-11 09:35 | Outpatient (BNVA) | payer MEDICARE, OTHER, SELFPAY | PROVIDERS: PCP Nurse Practitioner Family; Visit Provider Orthopaedic Surgery | DX: M54.2 Cervicalgia (principal); S22.010A Wedge compression fracture of first thoracic vertebra, initial encounter for closed fracture; S22.020A Wedge compression fracture of second thoracic vertebra, initial encounter for closed fracture; S22.040A Wedge compression fracture of fourth thoracic vertebra, initial encounter for closed fracture; X58.XXXA Exposure to other specified factors, initial encounter | CPT/HCPCS: 72072; 99213 ==

== ENCOUNTER → 2024-11-08 07:58 | Outpatient (BNVA) | payer MEDICARE, OTHER, SELFPAY | PROVIDERS: PCP Nurse Practitioner Family; Visit Provider Orthopaedic Surgery | DX: S22.000A Wedge compression fracture of unspecified thoracic vertebra, initial encounter for closed fracture (principal); X58.XXXA Exposure to other specified factors, initial encounter | CPT/HCPCS: 72072; 99213 ==

== ENCOUNTER 2024-11-23 07:10 | Outpatient (RCR) | payer MEDICARE, OTHER, SELFPAY | END 2024-12-17 23:59 | disposition home or self-care (01) | LOC: SPT 07:10 | PROVIDERS: Visit Provider Orthopaedic Surgery | DX: S22.020D Wedge compression fracture of second thoracic vertebra, subsequent encounter for fracture with routine healing (principal); S22.040D Wedge compression fracture of fourth thoracic vertebra, subsequent encounter for fracture with routine healing; S22.01 Fracture of first thoracic vertebra; X58.XXXD Exposure to other specified factors, subsequent encounter | CPT/HCPCS: 97110; 97140; 97161 ==

== ENCOUNTER 2024-12-18 05:00 | Outpatient (RCR) | payer MEDICARE, OTHER, SELFPAY | END 2025-01-07 09:24 | disposition home or self-care (01) | LOC: SPT 05:00 | PROVIDERS: Visit Provider Orthopaedic Surgery | DX: S22.01 Fracture of first thoracic vertebra (principal); S22.020D Wedge compression fracture of second thoracic vertebra, subsequent encounter for fracture with routine healing; S22.040D Wedge compression fracture of fourth thoracic vertebra, subsequent encounter for fracture with routine healing; X58.XXXD Exposure to other specified factors, subsequent encounter | CPT/HCPCS: 97110; 97140 ==

== ENCOUNTER → 2025-03-06 09:00 | Outpatient (BNVA) | payer MEDICARE, OTHER, SELFPAY | PROVIDERS: PCP Nurse Practitioner Family; Visit Provider Nurse Practitioner Family | DX: I25.10 Atherosclerotic heart disease of native coronary artery without angina pectoris (principal); I10 Essential (primary) hypertension; E78.2 Mixed hyperlipidemia; Z79.02 Long term (current) use of antithrombotics/antiplatelets; Z79.82 Long term (current) use of aspirin; I25.2 Old myocardial infarction | CPT/HCPCS: 99214 ==

== ENCOUNTER 2025-06-21 20:51 | Inpatient (IN) | payer MEDICARE, OTHER, SELFPAY ==
[2025-06-21 20:55] VITALS: BP 171/88; PULSE 75; RESP 16; O2SAT 99
--- OUTSIDE RECORDS SUMMARY | 2025-06-21 20:57 | XMS_ITS | Clinical Summary ---
Author Organization [facility] Jovanny rojas [place] Address [address] [place] [address] Phone Care Team Providers Care Stock Control Clerk Name Role Phone Loretta Lamb MD Primary Care Provider [phone]- [phone] Allergies No known active allergies Medications clopidogrel (PLAVIX) 75 mg Tablet Take 75 mg by mouth daily. Active atorvastatin (LIPITOR) 40 mg tablet Take 40 mg by mouth Daily LATE. Active omeprazole (PRILOSEC) 40 mg Capsule, Delayed Release(E.C.) Take 40 mg by mouth daily. Active quinapril (ACCUPRIL) 10 mg tablet Take 10 mg by mouth daily. Active aspirin (KEREN CHEWABLE) 81 mg Tablet, Chewable Take 81 mg by mouth daily. Active 0mega-3 fatty acids-vitamin E (FISH OIL) 1,000 mg Capsule Take 1,000 mg by mouth. Active niacin (NIACOR) 500 mg tablet Take 500 mg by mouth daily. Active GLUCOSAMINE/AMOR DROITIN SULF A (GLUCOSAMINE-CHO NDROITIN ORAL) Take by mouth. Active Active Problems Problem Noted Date Diagnosed Date Personal history of other malignant neoplasm of skin 02/07/2014 Social History Tobacco Use Types Packs/Day Years Used Date Smoking Tobacco: Never Alcohol Use Standard Drinks/Week Comments Not Asked 0 (1 standard drink = 0.6 oz pur e alcohol) Sex and Gender Information Value Date Recorded Sex Assigned at Not on file Legal Sex Male 11:26 AM CDT Gender Identity Not on file Sexual Orientation Not on file Last Filed Vital Signs Vital Sign Reading Time Taken Comments Blood Pressure 124/81 06/02/2015 3:25 PM CDT Pulse - - Temperature - - Respiratory Rate - - Oxygen Saturation - - Inhaled Oxygen Concentration - - Weight 93.4 kg (206 lb) 06/02/2015 3:25 PM CDT Height 185.4 cm (6' 1 ) 06/02/2015 3:25 PM CDT Body Mass Index 27.18 06/02/2015 3:25 PM CDT Plan of Treatment Health Maintenance Due Date Last Done Comments DTAP/TDAP/TD VACCINES (1 - Tdap) 01/24/1968 PNEUMOCOCCAL VACCINE 50+ YEARS (1 of 1 - PCV) 01/23/19 99 ZOSTER VACCINE (1 of 2) 1999 RSV VACCINE (60+ or ) (1 - 1-dose 75+ series) 01/24/2024 INFLUENZA VACCINE (#1) 2025 Insurance MEDICARE PART A AND B [facility] Care Teams Stock Control Clerk Relationship Specialty Start Date End Date Loretta Lamb MD [address] [place] [address] PCP - General Family Practice 06/02/15
--- OUTSIDE RECORDS SUMMARY | 2025-06-21 20:57 | XMS_ITS | Clinical Summary ---
Author Organization [facility] Address [address] Attn: Epic Prelude ADT KRISTIN FIGUEROA [address] Care Team Providers Care Skin Lap Bonder Name Role Phone Loretta Lamb MD Primary Care Provider [phone]- [phone] Allergies No known active allergies Active Problems Problem Noted Date Diagnosed Date Personal history of other malignant neoplasm of skin 02/07/2014 Social History Tobacco Use Types Packs/Day Years Used Date Smoking Tobacco: Never Alcohol Use Standard Drinks/Week Comments Not Asked 0 (1 standard drink = 0.6 oz pur e alcohol) Sex and Gender Information Value Date Recorded Sex Assigned at Not on file 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
--- NOTE | 2025-06-21 20:58 | ECG_ITS ---
[facility] Test Date: 2025-06-21 Pat Name: Jamal Castillo Department: Room: Gender: Male Net Developer Architect: : 1950 Requested By: Aleksander Bradshaw Order Number: [id number] Irina MD: Jovita Castle M.D. Measurements Intervals [place] Rate: 58 P: 48 CA: 195 QRS: -14 QRSD: 92 T: 42 QT: 389 QTc: 383 Interpretive Statements SINUS BRADYCARDIA WITH SINUS ARRHYTHMIA Compared to ECG 10/02/2024 19:31:41 Sinus rhythm no longer present T-wave abnormality no longer present Electronically Signed On 06-22-2025 14:28:06 CDT by Jovita Castle M.D. [id number]
[2025-06-21 21:37] VITALS: BP 164/97; PULSE 72
--- NOTE | 2025-06-21 21:44 | XRR_ITS ---
PROCEDURE INFORMATION: Exam: XR Chest Exam date and time: 06/21/2025 9:51 PM Age: 75 years old Clinical indication: Chest pressure; Prior surgery; Surgery date: 6+ months; Surgery type: Coronary stents; C/O chest pain; Additional info: Cp TECHNIQUE: Imaging protocol: Radiologic exam of the chest. Views: 1 view. COMPARISON: CR XR chest 1V portable [id number] 10/02/2024 6:56 PM FINDINGS: Lungs: Both lungs are well-aerated. No consolidation. Pleural spaces: No acute abnormality. No pleural effusion. No pneumothorax. Heart/Mediastinum: No acute abnormality. No cardiomegaly. Bones/joints: Moderate osteophytes thoracic spine. XR/XR chest 1V portable [id number] IMPRESSION: No acute findings.
[2025-06-21 21:54] LABS: Hematocrit 45.1 % (37-53); Hemoglobin 15.10 g/dL (11.27-16.99); Mean Corpuscular HGB Conc 33.5 g/dL (30-55); Mean Corpuscular Hemoglobin 28.3 pg (27-33); Mean Corpuscular Volume 84.6 fl (82-101); Nucleated Red Blood Cells % 0 %; Platelet Count 238 10^3/cmm (157-399); Red Blood Count 5.33 10^6/uL (3.85-5.65); White Blood Count 10.82 10^3/uL (3.29-11.43)
[2025-06-21] MEDS: lidocaine 2% viscous 15 ML, aluminum-mag hydrox-simethicon 30 ML, sucralfate oral liq 1 GM PO (22:05)
[2025-06-21 22:20] LABS: Troponin(5th) Baseline 15 ng/L (0-15)
--- NOTE | 2025-06-21 22:25 | CTR_ITS ---
PROCEDURE INFORMATION: Exam: CT Chest With Contrast; Diagnostic Exam date and time: 06/21/2025 10:46 PM Age: 75 years old Clinical indication: Vomiting; Other: N/a; Chest pressure; Prior surgery; Surgery date: 6+ months; Surgery type: Coronary stents; Chest pain with coffee ground emesis; Additional info: Chest pain, coffee ground emesis TECHNIQUE: Imaging protocol: Diagnostic computed tomography of the chest with contrast. Radiation optimization: All CT scans at this facility use at least one of these dose optimization techniques: automated exposure control; mA and/or kV adjustment per patient size (includes targeted exams where dose is matched to clinical indication); or iterative reconstruction. Contrast material: OMNI 350; Contrast volume: 100 ml; Contrast route: INTRAVENOUS (IV); COMPARISON: CT angio chest PE protcl [id number] 09/07/2024 2:18 PM RADIATION DOSE METRICS: Total DLP (mGy-cm): 1392.75 FINDINGS: Lungs: Minimal bibasilar discoid atelectasis. The lungs are free of consolidation. Pleural spaces: Unremarkable. No pneumothorax. No pleural effusion. Heart: The heart is stable in size. No pericardial effusion. Coronary arteries: Stent noted in the left anterior descending coronary artery. Minimal coronary artery calcification. Esophagus: Distal esophageal wall thickening. Lymph nodes: Unremarkable. No enlarged lymph nodes. Vasculature: Unremarkable. No aortic aneurysm. Diaphragm: Mild hiatal hernia. Bones/joints: Degenerative changes. Chronic T1, T2, T3, T4, T6 and T7 compression fractures. Bone density is decreased. No acute bony abnormality. Soft tissues: Unremarkable. PROCEDURE INFORMATION: Exam: CT Abdomen And Pelvis With Contrast Exam date and time: 06/21/2025 10:46 PM Age: 75 years old Clinical indication: Vomiting; Other: N/a; Chest pressure; Prior surgery; Surgery date: 6+ months; Surgery type: Coronary stents; Chest pain with coffee ground emesis; Additional info: Chest pain, coffee ground emesis TECHNIQUE: Imaging protocol: Computed tomography of the abdomen and pelvis with contrast. Radiation optimization: All CT scans at this facility use at least one of these dose optimization techniques: automated exposure control; mA and/or kV adjustment per patient size (includes targeted exams where dose is matched to clinical indication); or iterative reconstruction. Contrast material: OMNI 350; Contrast volume: 100 ml; Contrast route: INTRAVENOUS (IV); COMPARISON: CR XR hip RT 2-3V wo/w pel* [id number] 06/02/2020 10:45 AM RADIATION DOSE METRICS: Total DLP (mGy-cm): 1292.75 FINDINGS: Liver: Normal. No mass. Gallbladder and biliary ducts: The gallbladder is contracted with gallstones. No biliary ductal dilatation. Pancreas: Normal. No ductal dilation. Spleen: Normal. No splenomegaly. Adrenal glands: Normal. No mass. Kidneys and ureters: Normal. No hydronephrosis. Stomach and bowel: Scattered colon diverticula. No inflammatory change identified involving the GI tract. No signs of bowel obstruction. Appendix: No evidence of appendicitis. Intraperitoneal space: Unremarkable. No free air. No significant fluid collection. Vasculature: Minimal scattered calcific plaque involves the aorta. No aortic aneurysm. Lymph nodes: Unremarkable. No enlarged lymph nodes. Urinary bladder: Unremarkable as visualized. Reproductive: The prostate gland is enlarged. Mild diffuse urinary bladder wall thickening likely related to chronic urinary bladder outlet obstruction from an enlarged prostate gland. Bones/joints: Mild degenerative changes. No acute bony abnormality. Soft tissues: Unremarkable. CT/CT chest abdpel w/*[id number] IMPRESSION: 1. Diffuse distal esophageal wall thickening. Clinical correlation for esophagitis recommended. 2. Mild hiatal hernia. IMPRESSION: 1. No acute abnormality. 2. Cholelithiasis. 3. Prostatomegaly.
[2025-06-21] MEDS: ondansetron 2 mg/ML SDV 2 mL 4 MG IVP (22:27)
[2025-06-21 22:30] LABS: Alanine Aminotransferase 11 U/L (0-41); Albumin Level 4.5 g/dL (3.5-5.2); Alkaline Phosphatase 140 U/L (40-130); Anion Gap 17.1 (5-19); Aspartate Amino Transferase 15 U/L (0-40); Blood Urea Nitrogen 11 mg/dL (8-23); Calcium 10.3 mg/dL (8.5-10.5); Carbon Dioxide 26 mmol/L (22-29); Chloride 95 mmol/L (98-107); Creatinine Clr Calc Pharmacy 97.6178; Globulin 3.4 g/dL (1.3-4.6); Glucose 108 mg/dL (65-115); NT Pro B Type Natriuretic Pept 84 pg/mL (0-450); Osmolality Calculated 278 mOsm/kg (285-295); Potassium 4.1 mmol/L (3.5-5.1); Sodium 134 mmol/L (136-145); Total Protein 7.9 g/dL (6.6-8.7)
[2025-06-21 22:40] VITALS: BP 131/82; PULSE 72; RESP 22; O2SAT 97
[2025-06-21] MEDS: iohexol 350 mg/mL 500 mL Btl (per mL) IV (22:48)
[2025-06-21 23:05] VITALS: BP 159/94; PULSE 71; RESP 21; O2SAT 97
[2025-06-21 23:11] LABS: Lipase 33 U/L (13-60)
[2025-06-21 23:26] VITALS: BP 152/98; PULSE 70; RESP 20; O2SAT 95
[2025-06-21] MEDS: pantoprazole 40 mg SDV 80 MG IVP (23:26)
--- NOTE | 2025-06-21 23:27 | PM.HP ---
Providers/Chief Complaint Primary Care Provider: JOSE MARTIN Melissa Chief Complaint: CP History of Present Illness as per the patient and the previous chart review; Jamal Castillo is a 75 year old male with past medical history of coronary artery disease, hypertension, hyperlipidemia, history of varicosities s/p intervention presented with midepigastric pain that was radiating to the throat with burning sensation. The patient has been taking on and off ibuprofen for his back pain since 1-1/2-week. There is no fever or chills. There was no radiation to any part of his body. No diaphoresis, no chest pressure or chest pain. No shortness of breath, no dizziness no syncope or presyncope like swelling. No nausea or vomiting. No recent lower leg swellings. Rest of the review of system was unremarkable Review of Systems General: Reports: 10 or more systems reviewed and unremarkable except in HPI and below Medications/Allergies Home Medications ?Medication ?Instructions ?Recorded ?Confirmed ?Last Taken ?Type aspirin 81 mg tablet,delayed 81 mg PO QPM 07/03/20 03/06/25 09/06/24 History release (Adult Low Dose Aspirin) atorvastatin 20 mg tablet 20 mg PO QPM 07/03/20 03/06/25 09/06/24 History clopidogrel 75 mg tablet 75 mg PO QPM 07/03/20 03/06/25 09/06/24 History omeprazole 40 mg capsule,delayed 40 mg PO QAM 07/03/20 03/06/25 09/07/24 History release nitroglycerin 0.4 mg sublingual 0.4 mg sublingual Q5M PRN chest 07/02/21 03/06/25 Unknown History tablet pain tamsulosin 0.4 mg capsule 0.4 mg PO BEDTIME 07/15/23 03/06/25 09/06/24 History losartan 50 mg tablet 50 mg PO BID 10/18/23 03/06/25 09/07/24 History amlodipine 2.5 mg tablet 2.5 mg PO DAILY #90 tabs 05/01/25 Unknown Rx metoprolol tartrate 25 mg tablet 12.5 mg (1/2 x 25 mg) PO BID #45 06/12/25 Unknown Rx tabs Allergies Allergy/AdvReac Type Severity Reaction Status Date / Time No Known Allergies Allergy Verified 03/06/25 09:07 PFSH Acute PFSH: Medical History (Updated 06/22/25 @ 00:51 by Remy Alamo MD) Myocardial infarction Hypertension ASHD (arteriosclerotic heart disease) Hyperlipidemia Surgical History H/O arthroscopic knee surgery History of varicose vein stripping Family History Father CAD (coronary artery disease) Brother Cancer Denies family history of Diabetes Clotting disorder Dementia Chronic kidney disease (CKD) Suicide Anesthesia complication Bleeding disorder Lung disease Stroke Social History Smoking and tobacco/nicotine status: never used tobacco/nicotine Alcohol intake: current Alcohol intake frequency: holidays/special occasions only Substance/Drug Use: never Vitals/I&O/Wt Last Vital Signs Pulse 71 06/21/25 23:05 Resp 21 H 06/21/25 23:05 BP 159/94 06/21/25 23:05 Pulse Ox 97 06/21/25 23:05 O2 Del Method Room Air 06/21/25 20:55 Weight last 48 hrs Weight 99.79 kg Physical Exam Narrative: General: Alert and oriented, lying comfortably without any distress HEENT: Normocephalic, atraumatic, grossly unremarkable exam Cardio: normal rate rhythm, normal S1-S2 without any murmurs, rubs, or gallops and JVD normal Respiratory: normal vascular breathing on auscultation without any wheezes, stridor, rhonchi GI: Abdomen soft, nontender, nondistended, normoactive bowel sounds present all 4 quadrants, Neuro: intact cranial nerves motor and sensory and cerebellar/coordination function without any focal neurological deficit Behavior: Appropriate and cooperative Extremities: Adequate palpable pulses, no edema or cyanosis observed Skin: grossly unremarkable exam Data 06/21/25 21:43 06/21/25 21:43 A&P Assessment and plan 1. Esophagitis: - Avoid Motrin and other NSAIDs apart from aspirin to continue -PPI daily - Sucralfate regularly every 6 hourly - Maalox regularly to be given - Patient has been informed about diet modification and avoidance of triggers for gastritis/esophagitis - At the time of discharge for outpatient referral to PCP and further management 2. Hypertension: - Patient medication to be reconciled, patient takes losartan 50 mg and amlodipine 2.5 mg daily -After reconciliation to continue on losartan 50 mg and amlodipine 5 mg daily 3. Coronary artery disease: - After reconciliation to continue on aspirin and clopidogrel daily - Statins to continue - Nitroglycerin as needed for pain 4. Hyperlipidemia: - Continue home dose statins PDMP PDMP Reviewed: Not Reviewed Attestations Medical Necessity Statement*: Jamal Castillo's hospital stay will be less than 2 midnights for management of esophagitis/gastritis Time Spent in Patient Care: 16 - 35 minutes (>than 50% of time spent in counselling and/or direct pt care on unit). Other Attestations: Patient condition has been discussed at length with the patient/family, I have independently reviewed the chart labs imaging/diagnostics/EKG. 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 The patient/family has been informed about the current condition and further plan of care. Agreed with the plan of care and understood without any language barrier. Every effort was made to ensure accuracy of extrusion former. Any obvious errors or omissions should be clarified with the author of the document. Coding Level of Care Code Acute Code for Chg Fwd Diagnoses Esophagitis K20.90 Hypertension I10 Coronary artery disease I25.10 Hyperlipidemia E78.5
[2025-06-21 23:35] VITALS: BP 166/95; PULSE 75; RESP 24; O2SAT 97
--- NOTE | 2025-06-21 23:44 | ECG_ITS ---
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 Measurements Intervals [place] Rate: 55 P: 62 MS: 199 QRS: 3 QRSD: 96 T: 53 QT: 403 QTc: 386 Interpretive Statements SINUS BRADYCARDIA WITH MARKED SINUS ARRHYTHMIA Compared to ECG 06/21/2025 20:58:30 No significant changes Electronically Signed On 06-22-2025 14:39:42 CDT by Jovita Castle M.D. [email or web address]
--- NOTE | 2025-06-21 23:46 | W.ED.CHESTPA ---
HPI - Chest Pain General: Chief Complaint: Chest Pain Stated Complaint: CP Time Seen by Provider: 06/21/25 21:20 History of Present Illness: Patient is a 75-year-old male presenting with chest pain that has been present all day. He describes the pain as a severe bad burn in his chest that radiates through to his back. He initially thought it was indigestion and attempted to self-treat with omeprazole (which he takes regularly in the morning) and Rolaids without relief. The pain has been intermittent, with periods of severe intensity. Patient reports elevated blood pressure today. He denies associated shortness of breath or lower extremity edema. Patient has significant cardiac history including a myocardial infarction in 1998 and coronary stent placement in 2009. He states the current pain feels similar to his previous cardiac events. Related Data Home Medications ?Medication ?Instructions ?Recorded ?Confirmed aspirin 81 mg tablet,delayed 81 mg PO QPM 07/03/20 03/06/25 release (Adult Low Dose Aspirin) atorvastatin 20 mg tablet 20 mg PO QPM 07/03/20 03/06/25 clopidogrel 75 mg tablet 75 mg PO QPM 07/03/20 03/06/25 omeprazole 40 mg capsule,delayed 40 mg PO QAM 07/03/20 03/06/25 release nitroglycerin 0.4 mg sublingual 0.4 mg sublingual Q5M PRN chest 07/02/21 03/06/25 tablet pain tamsulosin 0.4 mg capsule 0.4 mg PO BEDTIME 07/15/23 03/06/25 losartan 50 mg tablet 50 mg PO BID 10/18/23 03/06/25 Previous Rx's ?Medication ?Instructions ?Recorded amlodipine 2.5 mg tablet 2.5 mg PO DAILY #90 tabs 05/01/25 metoprolol tartrate 25 mg tablet 12.5 mg (1/2 x 25 mg) PO BID #45 06/12/25 tabs Allergies Allergy/AdvReac Type Severity Reaction Status Date / Time No Known Allergies Allergy Verified 03/06/25 09:07 [facility] PFS: Medical History Myocardial infarction Hypertension ASHD (arteriosclerotic heart disease) Hyperlipidemia Surgical History H/O arthroscopic knee surgery History of varicose vein stripping Family History Father CAD (coronary artery disease) Brother Cancer Denies family history of Diabetes Clotting disorder Dementia Chronic kidney disease (CKD) Suicide Anesthesia complication Bleeding disorder Lung disease Stroke Social History Smoking and tobacco/nicotine status: never used tobacco/nicotine Alcohol intake: current Alcohol intake frequency: holidays/special occasions only Substance/Drug Use: never Physical Exam Const: GENERAL APPEARANCE: cooperative; not frail appearing HENMT: COMMON NORMALS: normocephalic, atraumatic and Normal external nose present HEAD & SCALP: normocephalic and atraumatic FACE & SINUS: normal facial exam and face symmetric NOSE: Normal external nose present Eye: COMMON NORMALS: Equal, round and reactive pupils present and EOMs intact bilaterally PUPIL: Yes Equal, round and reactive pupils present Neck/C-Spine: GENERAL: Yes trachea midline Chest: CHEST: Yes Symmetrical chest wall rise Resp: COMMON NORMALS: normal respiratory effort, No retractions, No use of accessory muscles and clear to auscultation bilaterally AUSCULTATION: clear to auscultation bilaterally Cardio: COMMON NORMALS: regular rate and regular rhythm RATE: regular rate RHYTHM: regular rhythm GI: COMMON NORMALS: Normal to inspection, nondistended, normoactive bowel sounds present Extremity: COMMON NORMALS: no pedal edema Neuro: CHATA COMA SCALE: document GCS findings [place] coma scale eye opening: Spontaneous [place] coma scale verbal response: Orientated [place] coma scale motor response: Obey commands Ch[place] coma scale total score: 15 SENSORY EXAM: Yes extremities (intact) Psych: COMMON NORMALS: speech normal SPEECH: Yes normal speech Skin: COMMON NORMALS: no rashes or lesions noted GENERAL SKIN EXAM: no rashes or lesions noted Course Vital Signs: Vital signs: Vital Signs Pulse Rate 75 06/21/25 23:35 Respiratory Rate 24 H 06/21/25 23:35 Blood Pressure 166/95 06/21/25 23:35 Pulse Oximetry 97 06/21/25 23:35 Oxygen Delivery Me thod Room Air 06/21/25 23:26 MDM - Chest Pain Medical Decision Making Patient is moderately hypertensive. His other vitals are stable. He was given a GI cocktail as a test for esophageal pain being in the differential. He seemed to have significant improvement with this. He then vomited, with some coffee-ground emesis present that was positive for Hemoccult. CT of the chest abdomen pelvis was ordered because of this. His EKG showed sinus bradycardia with normal axis and intervals and no ST-T wave changes. His chest x-ray is nonacute. His first troponin was 15. Chest abdomen pelvis CT shows diffuse esophageal wall thickening with a mild hiatal hernia. He was given 80 mg of IV Protonix. Belly CT was nonacute. Lipase is 33. His pain is much improved after vomiting. Nevertheless, given his history, he will be admitted for chest pain and esophagitis. Lab Data 06/21/25 21:43 06/21/25 21:43 Radiology Impressions Chest X-Ray 06/21/25 21:44 IMPRESSION: No acute findings. Chest/Abdomen/Pelvis CT 06/21/25 22:25 IMPRESSION: 1. Diffuse distal esophageal wall thickening. Clinical correlation for esophagitis recommended. 2. Mild hiatal hernia. IMPRESSION: 1. No acute abnormality. 2. Cholelithiasis. 3. Prostatomegaly. Laboratory Results WBC 10.82 10^3/uL (3.29-11.43) 06/21/25 21:43 RBC 5.33 10^6/uL (3.85-5.65) 06/21/25 21:43 Hgb 15.10 g/dL (11.27-16.99) 06/21/25 21:43 Hct 45.1 % (37-53) 06/21/25 21:43 MCV 84.6 fl (82-101) 06/21/25 21:43 MCH 28.3 pg (27-33) 06/21/25 21:43 MCHC 33.5 g/dL (30-55) 06/21/25 21:43 RDW 14.7 % (12.1-15.1) 06/21/25 21:43 Plt Count 238 10^3/cmm (157-399) 06/21/25 21:43 MPV 9.7 fL (7.4-10.4) 06/21/25 21:43 Neut % (Auto) 78.6 % 06/21/25 21:43 Lymph % (Auto) 11.3 % 06/21/25 21:43 [place] % (Auto) 6.7 % 06/21/25 21:43 Eos % (Auto) 2.3 % 06/21/25 21:43 Baso % (Auto) 0.6 % 06/21/25 21:43 Neut # (Auto) 8.51 10^3/uL (1.8-7.7) H 06/21/25 21:43 Lymph # (Auto) 1.2 10^3/uL (0.8-4.8) 06/21/25 21:43 [place] # (Auto) 0.7 10^3/uL (0.2-0.9) 06/21/25 21:43 Eos # (Auto) 0.3 10^3/uL (0.0-0.8) 06/21/25 21:43 Baso # (Auto) 0.1 10^3/uL (0.0-0.1) 06/21/25 21:43 Nucleated RBC % (auto) 0 % 06/21/25 21:43 Nucleated RBCs # 0.0 /100WBC 06/21/25 21:43 Sodium 134 mmol/L (136-145) L 06/21/25 21:43 Potassium 4.1 mmol/L (3.5-5.1) 06/21/25 21:43 Chloride 95 mmol/L (98-107) L 06/21/25 21:43 Carbon Dioxide 26 mmol/L (22-29) 06/21/25 21:43 Anion Gap 17.1 (5-19) 06/21/25 21:43 BUN 11 mg/dL (8-23) 06/21/25 21:43 Creatinine 0.8 mg/dL (0.7-1.2) 06/21/25 21:43 GFR Calculation Not Reportable 06/21/25 21:43 Glucose 108 mg/dL (65-115) 06/21/25 21:43 Calculated Osmolality 278 mOsm/kg (285-295) L 06/21/25 21:43 Calcium 10.3 mg/dL (8.5-10.5) 06/21/25 21:43 Total Bilirubin 1.1 mg/dL (0.15-1.2) 06/21/25 21:43 AST 15 U/L (0-40) 06/21/25 21:43 ALT 11 U/L (0-41) 06/21/25 21:43 Alkaline Phosphatase 140 U/L (40-130) H 06/21/25 21:43 Troponin T Baseline 15 ng/L (0-15) 06/21/25 21:43 NT-Pro-B Natriuret Pep 84 pg/mL (0-450) 06/21/25 21:43 Total Protein 7.9 g/dL (6.6-8.7) 06/21/25 21:43 Albumin 4.5 g/dL (3.5-5.2) 06/21/25 21:43 Globulin 3.4 g/dL (1.3-4.6) 06/21/25 21:43 Lipase 33 U/L (13-60) 06/21/25 21:43 All radiology interpretation(s) finalized by discharge Discharge Plan Discharge Patient Disposition: Admitted As Inpatient Admit Provider: Remy Alamo Clinical Impression: Chest pain, Esophagitis Condition: Stable Coding Level of Care Code ED Body Joiner for Chg Fwd Heart Score HEART Score Components History: Moderately Suspicious EKG: Normal Age: 65 or more yrs Risk Factors: >/=3 Risk Factors Troponin: Baseline Trop <16 ng/L HEART Score RESULT HEART Score: 5
[2025-06-21 23:56] LABS: Troponin 5 2HR 14.32 ng/L (0-15)
[2025-06-22] VITALS: BP 159/107; PULSE 72; RESP 19; TEMP 36.6; O2SAT 95
[2025-06-22 00:01] LABS: Troponin 5 2HR Delta -0.68 ABS# (0-10)
[2025-06-22 00:06] LABS: Magnesium 1.7 mg/dL (1.7-2.3)
--- NOTE | 2025-06-22 01:08 | PC.NURSE ---
Report called to Estrellita ZAYAS in [facility]. All questions and concerns were addressed at time of report.
[2025-06-22] MEDS: alum-mag-hydroxide-sime 30 mL UDC 15 ML PO ×4 (01:42→12:55)
[2025-06-22] MEDS: pantoprazole 40 mg SDV IVP (01:43)
[2025-06-22 03:02] LABS: Thyroid Stimulating Hormone 4.29 uIU/mL (0.27-4.20)
[2025-06-22 03:04] VITALS: BP 108/70; PULSE 70; RESP 21; TEMP 36.6; O2SAT 98
--- NOTE | 2025-06-22 03:24 | ECG_ITS ---
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 Measurements Intervals [place] Rate: 61 P: 67 SD: 205 QRS: -18 QRSD: 97 T: 30 QT: 414 QTc: 419 Interpretive Statements SINUS RHYTHM Compared to ECG 06/21/2025 23:50:04 Sinus bradycardia no longer present Sinus arrhythmia no longer present Electronically Signed On 06-22-2025 14:39:33 CDT by Jovita Castle M.D. [email or web address]
[2025-06-22 04:21] LABS: Hematocrit 40.2 % (37-53); Hemoglobin 13.20 g/dL (11.27-16.99); Mean Corpuscular HGB Conc 32.8 g/dL (30-55); Mean Corpuscular Hemoglobin 27.8 pg (27-33); Mean Corpuscular Volume 84.8 fl (82-101); Nucleated Red Blood Cells % 0 %; Platelet Count 198 10^3/cmm (157-399); Red Blood Count 4.74 10^6/uL (3.85-5.65); White Blood Count 7.68 10^3/uL (3.29-11.43)
[2025-06-22 04:30] LABS: Troponin 5 6HR 13.15 ng/L (0-15)
[2025-06-22 04:53] LABS: Alanine Aminotransferase 9 U/L (0-41); Albumin Level 4.1 g/dL (3.5-5.2); Alkaline Phosphatase 132 U/L (40-130); Anion Gap 14.3 (5-19); Aspartate Amino Transferase 13 U/L (0-40); Blood Urea Nitrogen 10 mg/dL (8-23); Calcium 9.2 mg/dL (8.5-10.5); Carbon Dioxide 25 mmol/L (22-29); Chloride 99 mmol/L (98-107); Creatinine Clr Calc Pharmacy 97.7556; Globulin 2.4 g/dL (1.3-4.6); Glucose 116 mg/dL (65-115); Osmolality Calculated 278 mOsm/kg (285-295); Potassium 4.3 mmol/L (3.5-5.1); Sodium 134 mmol/L (136-145); Total Protein 6.5 g/dL (6.6-8.7)
[2025-06-22 05:00] LABS: Troponin 5 6HR Delta -1.85 ng/L (0-12)
[2025-06-22 07:10] VITALS: BP 112/84; PULSE 57; RESP 16; TEMP 35.9; O2SAT 93
[2025-06-22 08:00] VITALS: BP 112/84; PULSE 57; RESP 16; TEMP 35.9
[2025-06-22 11:38] VITALS: BP 108/68; PULSE 62; RESP 21; TEMP 36.3; O2SAT 95
[2025-06-22 13:03] LABS: Hematocrit 40.8 % (37-53); Hemoglobin 13.50 g/dL (11.27-16.99)
--- NOTE | 2025-06-22 13:54 | P.DS_ITS ---
Discharge Providers Date of Admission: 06/21/25 23:23 Date of Discharge: June 22, 2025 Attending Provider at Admission: Remy Alamo MD Attending Provider at Discharge: Tomas Gilliam MD Primary Care Provider: JOSE MARTIN Melissa Diagnoses at Discharge Discharge Diagnosis 1. Esophagitis: 2. Essential hypertension: 3. Coronary artery disease: 4. Mixed hyperlipidemia: Reason for Visit Reason for Visit: CP Brief History: Per HPI: Jamal Castillo is a 75 year old male with past medical history of coronary artery disease, hypertension, hyperlipidemia, history of varicosities s/p intervention presented with midepigastric pain that was radiating to the throat with burning sensation. The patient has been taking on and off ibuprofen for his back pain since 1-1/2-week. There is no fever or chills. There was no radiation to any part of his body. No diaphoresis, no chest pressure or chest pain. No shortness of breath, no dizziness no syncope or presyncope like swelling. No nausea or vomiting. No recent lower leg swellings. Rest of the review of system was unremarkable Hospital Course Hospital Course Patient was admitted to the hospital further evaluation and management of significant gastritis. Cardiac etiology was ruled out with negative troponins on admission and cycle. Her hemoglobin during hospitalization remained stable. He is been discharged in medically stable condition on Protonix twice daily, Carafate ACHS with advised to continue with BRAT diet for next 1 week. He is advised to come back to hospital if he is not able to maintain his oral intake because of nausea and vomiting. Aspirin has been discontinued. He is to check his blood pressure daily at home maintain a blood pressure diary with advised to follow-up as an outpatient with his PCP within next 1 week with a blood pressure diary for further adjustment of antihypertensive as needed. He is to have H. pylori stool antigen checked as an outpatient. If he persistently has significant gastritis he should follow-up with surgery as an outpatient for endoscopy. Physical Exam Narrative: General: Alert and oriented, lying comfortably without any distress HEENT: Normocephalic, atraumatic, grossly unremarkable exam Cardio: normal rate rhythm, normal S1-S2 without any murmurs, rubs, or gallops and JVD normal Respiratory: normal vascular breathing on auscultation without any wheezes, stridor, rhonchi GI: Abdomen soft, nontender, nondistended, normoactive bowel sounds present all 4 quadrants, Neuro: intact cranial nerves motor and sensory and cerebellar/coordination function without any focal neurological deficit Behavior: Appropriate and cooperative Extremities: Adequate palpable pulses, no edema or cyanosis observed Skin: grossly unremarkable exam Discharge Data Studies Completed and Pending Completed Studies During Hospitalization Category Date Time Status CT chest abdomen pelvis [CT chest abdpel w/*[id number] Cat Scan 06/21/25 22:25 Completed ] Stat XR chest 1V portable [id number] Stat Exams 06/21/25 21:44 Completed Pending at discharge Category Date Time Status Helicobacter Pylori AG Stool Routine Lab 06/22/25 12:47 Uncollected Radiology Impressions Chest X-Ray 06/21/25 21:44 IMPRESSION: No acute findings. Chest/Abdomen/Pelvis CT 06/21/25 22:25 IMPRESSION: 1. Diffuse distal esophageal wall thickening. Clinical correlation for esophagitis recommended. 2. Mild hiatal hernia. IMPRESSION: 1. No acute abnormality. 2. Cholelithiasis. 3. Prostatomegaly. Laboratory Results WBC 7.68 10^3/uL (3.29-11.43) 06/22/25 03:46 RBC 4.74 10^6/uL (3.85-5.65) 06/22/25 03:46 Hgb 13.50 g/dL (11.27-16.99) 06/22/25 12:50 Hct 40.8 % (37-53) 06/22/25 12:50 MCV 84.8 fl (82-101) 06/22/25 03:46 MCH 27.8 pg (27-33) 06/22/25 03:46 MCHC 32.8 g/dL (30-55) 06/22/25 03:46 RDW 14.6 % (12.1-15.1) 06/22/25 03:46 Plt Count 198 10^3/cmm (157-399) 06/22/25 03:46 MPV 10.3 fL (7.4-10.4) 06/22/25 03:46 Neut % (Auto) 72.7 % 06/22/25 03:46 Lymph % (Auto) 16.5 % 06/22/25 03:46 Parke % (Auto) 7.7 % 06/22/25 03:46 Eos % (Auto) 2.1 % 06/22/25 03:46 Baso % (Auto) 0.7 % 06/22/25 03:46 Neut # (Auto) 5.59 10^3/uL (1.8-7.7) 06/22/25 03:46 Lymph # (Auto) 1.3 10^3/uL (0.8-4.8) 06/22/25 03:46 Parke # (Auto) 0.6 10^3/uL (0.2-0.9) 06/22/25 03:46 Eos # (Auto) 0.2 10^3/uL (0.0-0.8) 06/22/25 03:46 Baso # (Auto) 0.1 10^3/uL (0.0-0.1) 06/22/25 03:46 Nucleated RBC % (auto) 0 % 06/22/25 03:46 Nucleated RBCs # 0.0 /100WBC 06/22/25 03:46 Sodium 134 mmol/L (136-145) L 06/22/25 03:46 Potassium 4.3 mmol/L (3.5-5.1) 06/22/25 03:46 Chloride 99 mmol/L (98-107) 06/22/25 03:46 Carbon Dioxide 25 mmol/L (22-29) 06/22/25 03:46 Anion Gap 14.3 (5-19) 06/22/25 03:46 BUN 10 mg/dL (8-23) 06/22/25 03:46 Creatinine 0.7 mg/dL (0.7-1.2) 06/22/25 03:46 GFR Calculation Not Reportable 06/22/25 03:46 Glucose 116 mg/dL (65-115) H 06/22/25 03:46 Calculated Osmolality 278 mOsm/kg (285-295) L 06/22/25 03:46 Calcium 9.2 mg/dL (8.5-10.5) 06/22/25 03:46 Magnesium 1.7 mg/dL (1.7-2.3) 06/21/25 23:27 Total Bilirubin 1.1 mg/dL (0.15-1.2) 06/22/25 03:46 AST 13 U/L (0-40) 06/22/25 03:46 ALT 9 U/L (0-41) 06/22/25 03:46 Alkaline Phosphatase 132 U/L (40-130) H 06/22/25 03:46 Troponin T Baseline 15 ng/L (0-15) 06/21/25 21:43 Troponin T 120 Minute 14.32 ng/L (0-15) 06/21/25 23:27 Delta Troponin T -0.68 ABS# (0-10) L 06/21/25 23:27 Troponin T Hi Sens 6Hr 13.15 ng/L (0-15) 06/22/25 03:46 Troponin T Hi Sens 6Hr Delta -1.85 ng/L (0-12) L 06/22/25 03:46 NT-Pro-B Natriuret Pep 84 pg/mL (0-450) 06/21/25 21:43 Total Protein 6.5 g/dL (6.6-8.7) L 06/22/25 03:46 Albumin 4.1 g/dL (3.5-5.2) 06/22/25 03:46 Globulin 2.4 g/dL (1.3-4.6) 06/22/25 03:46 Lipase 33 U/L (13-60) 06/21/25 21:43 TSH 4.29 uIU/mL (0.27-4.20) H 06/21/25 23:27 H. pylori IgG Antibody Negative (Negative) 06/22/25 12:50 Vitals Last Vital Signs Temp 97.3 F L 06/22/25 11:38 Pulse 62 06/22/25 11:38 Resp 21 H 06/22/25 11:38 BP 108/68 06/22/25 11:38 Pulse Ox 95 06/22/25 11:38 O2 Del Method Room Air 06/22/25 11:38 Discharge Plan Discharge Patient Disposition: Home Condition: Stable Prescriptions: New pantoprazole [Protonix] 40 mg tablet,delayed release (DR/EC) 40 mg PO QAM Qty: 60 0RF Rx Instructions: Twice daily for next 2 weeks followed by once daily sucralfate 1 gram Tablet 1 g PO AC&BEDTIME 30 Days Qty: 120 0RF Continued atorvastatin 20 mg tablet 20 mg PO BEDTIME clopidogrel 75 mg tablet 75 mg PO QPM nitroglycerin 0.4 mg tablet, sublingual 0.4 mg sublingual Q5M PRN (Reason: chest pain) losartan 50 mg tablet 50 mg PO BID amlodipine 2.5 mg tablet 2.5 mg PO DAILY Qty: 90 3RF metoprolol tartrate 25 mg tablet 12.5 mg PO BID Qty: 45 3RF tamsulosin 0.4 mg capsule 0.4 mg PO BEDTIME Discontinued omeprazole 40 mg capsule,delayed release(DR/EC) 40 mg PO QAM aspirin [Adult Low Dose Aspirin] 81 mg tablet,delayed release (DR/EC) 81 mg PO QPM Discharge Order = DC NOW: Discharge Order (Routine); Ordered 06/22/25 Ordered By: Tomas Gilliam Referrals: Latrice Erazo, AMMONIA SOLUTION PREPARER [Primary Care Provider, Nurse Practitioner] - 7-10 days Discharge Diet: Advance as tolerated and Soft Mechanical Discharge Activity: Resume usual activity and Increase activity as tolerated Patient Instructions: Opioid Safety, Patient Portal & Alejandro Instructions Activity Restrictions/Additional Instructions: Do not take omeprazole for now. Instead take Protonix twice daily, Carafate ACHS Take BRAT diet for next 1 week. Gradually advance to regular diet in next 1 week. He is advised to come back to hospital if he is not able to maintain his oral intake because of nausea and vomiting. Aspirin has been discontinued. He is to check his blood pressure daily at home maintain a blood pressure diary with advised to follow-up as an outpatient with his PCP within next 1 week with a blood pressure diary for further adjustment of antihypertensive as needed. He is to have H. pylori stool antigen checked as an outpatient. If he persistently has significant gastritis he should follow-up with surgery as an outpatient for endoscopy. Discharge Attestations Time Spent in Discharge Care*: greater than 30 min Specific Discharge Activities: educating patient, educating and/or supporting family/caregiver, discussing with pcp/other providers, discussing with bilingual case manager/social workers/dc planners, documenting/other paperwork and evaluating patient/reviewing data Status at Discharge: Cognitive status at discharge: cognitively intact , Behavioral status at discharge: cooperative , Functional status at discharge: independent ambulation , Overall status at discharge: patient is back to baseline Quality Metrics Clinical Quality Measures [ No reported AMI, CVA or VTE this stay] Coding Level of Care Code 13269 Total time (in minutes) for Discharge: 65 Diagnoses Esophagitis K20.90 Essential hypertension I10 Hypertension type: essential hypertension Coronary artery disease I25.10 Mixed hyperlipidemia E78.2 Hyperlipidemia type: mixed hyperlipidemia
[2025-06-22 14:36] VITALS: BP 108/68; PULSE 62; RESP 18; TEMP 36.6; O2SAT 96
== END 2025-06-22 14:41 | disposition home or self-care (01) | DRG 392 ==
LOC: ER 22:21 → CSU 06-22 00:11
PROVIDERS: Admitting Provider Student in an Organized Health Care Education/Training Program; Emergency Provider Emergency Medicine; PCP Nurse Practitioner Family; Visit Provider Student in an Organized Health Care Education/Training Program
DX: K20.90 Esophagitis, unspecified without bleeding (principal); K29.70 Gastritis, unspecified, without bleeding; I10 Essential (primary) hypertension; I25.10 Atherosclerotic heart disease of native coronary artery without angina pectoris; E78.2 Mixed hyperlipidemia; Z79.02 Long term (current) use of antithrombotics/antiplatelets; I25.2 Old myocardial infarction
CPT/HCPCS: 36415; 71045; 71260; 74177; 80053; 83690; 83735; 83880; 84443; 84484; 85014; 85018; 85025; 86677; 93005; 96372; 96374; 96375; 99285; J1650; J2405; J2470; J9999

== ENCOUNTER → 2025-08-19 09:46 | Outpatient (BNVA) | payer MEDICARE, OTHER, SELFPAY | PROVIDERS: PCP Nurse Practitioner Family; Visit Provider Internal Medicine Cardiovascular Disease | DX: I25.118 Atherosclerotic heart disease of native coronary artery with other forms of angina pectoris (principal); R07.9 Chest pain, unspecified; E78.2 Mixed hyperlipidemia; I10 Essential (primary) hypertension; Z98.890 Other specified postprocedural states; I25.2 Old myocardial infarction; R06.02 Shortness of breath; I48.91 Unspecified atrial fibrillation; Z79.01 Long term (current) use of anticoagulants | CPT/HCPCS: 36415; 80048; 85025; 85610; 86850; 86900; 99215 ==

== ENCOUNTER 2025-08-28 05:55 | Outpatient (CLI) | payer MEDICARE, OTHER, SELFPAY ==
[2025-08-28] VITALS (40 sets, daily range): BP systolic 95–159; BP diastolic 50–102; PULSE 41–96; RESP 11–29; TEMP 36.6; O2SAT 96–97; BMI 29.0
--- NOTE | 2025-08-28 06:58 | W.PM.OPSUD ---
Surgery/Procedure H&P Update DATE OF PROCEDURE: August 28, 2025 DATE H&P PERFORMED: 08/08/25 H&P UPDATE INFORMATION: I have reviewed H&P completed within last 30 days, I have examined patient prior to procedure and No changes to prior documentation PREOP DIAGNOSIS: ashd PRIMARY INDICATION FOR PROCEDURE: Accelerated angina/multiple PCI's in the past PLANNED PROCEDURE: Operation Date: 08/28/25 07:00 Proposed Procedures p Cardiac Catheterization - C w/wo LV and COROS(Left) - Jovita Castle MD PATIENT REASSESSED PRIOR TO SEDATION, WITH NO CHANGE NOTED: Yes PHYSICAL EXAM: alert, oriented x 3, clear to auscultation bilaterally and regular rate & rhythm AIRWAY EVAL/ANESTHESIA PLAN: normal airway, see other exam findings, ASA III, Monitored Anesthesia, Local Anesthesia, Risks, benefits & alternatives of sedation and/or procedure discussed and Patient agrees to continue as planned
--- NOTE | 2025-08-28 07:00 | XACV_ITS ---
Exam Room: 2 Ht: 185 cm Wt: 100 kg BSA: 2.29 m2 Gender: Male : 1950 Any Known Allergies: No known allergies Exam Priority: Routine Procedure(s): Procedure Description: Diagnostic procedure Procedure Description: PCI procedure Procedure Description: Left ventriculography Procedure Description: Drug Eluting Coronary Stent Procedure Description: PTCA Procedure Description: Miscellaneous Procedure Description: ACT Procedure Description: Coronary Angiography Tin SIMON; Diagnostic Cath Status: Elective Diagnostic Findings * The left main is a medium caliber vessel with minimal intimal irregularities. * The left anterior descending artery is a medium caliber vessel which appears to wraparound the LV apex. The mid LAD was found to have a long stented segment which was found to be widely patent. The 1st and 2nd diagonal branches were found to be relatively small caliber vessel with minimal intimal irregularities. The distal LAD was found to have mild diffuse intimal irregularities proximally. * The left circumflex artery is a medium caliber codominant vessel which was found to have minimal intimal irregularities proximally. Right after the second obtuse marginal branch, the distal circumflex was found to have around 70 to 80% segmental narrowing. The artery continues is the third obtuse marginal branch distally. No other significant stenotic lesions were noted. * The right coronary artery is a medium caliber codominant vessel with around 20% eccentric lesion right after the first RV branch. No other significant lesions were noted. PCI Status: Elective Interventional Findings * PCI to distal circumflex for high-grade 80% stenosis.Successful PCI to distal left circumflex. Lesion was prepared with AV trek 2.5 x 12 mm balloon followed by deployment of [place] 3.0 x 15 mm drug-eluting stent, stent was then postdilated with MDT MITCH Euphora 3.5 x 8 mm at high atmosphere to confirm good apposition. Excellent angiographic result with VILMA-3 flow was noted at the end of the case. Conclusions 1. 75-year-old white male with a history of atherosclerotic heart diseas, high blood pressure, dyslipidemia, presented with increasing episodes of chest pain, affecting his functional status. He had a Myocardial perfusion imaging less than a year ago which was essentially unremarkable. In review of his ongoing worsening symptoms and also multiple risk factors, in order to further evaluate his coronary status, a repeat cardiac catheterization was recommended. Patient underwent left heart catheterization with left and right coronary angiogram today. The findings are as follows. 2. 1. No significant left main disease #2 patent stent in the Left anterior descending artery. #3 high-grade lesion in the distal circumflex/third obtuse marginal branch. #4 mild disease in the other vessels. LVEDP of 10 mmHg. 3. I have discussed and reviewed the cardiac catheterization data with Dr. Dominguez. It was thought to be appropriate to consider PCI of the circumflex artery lesion. concurred with this plan and took over further management this patient at this point. Recommendations * 1-Return to inpatient for close monitoring and routine cath care 2-Risk factor modification for secondary prevention 3-Statin and aspirin 81 mg life-long, if tolerated 4-Patient was pre-loaded with 600 mg of Plavix, continue Plavix 75mg p.o. daily for at least one year. We will assess at the end of one year again to continue if further or not 5-Continue optimal medical management 6-Follow up with Dr. Castle in four weeks and your primary care in 10 days. Diagnostic RX Recommendation: PCI w/o planned CABG LV EDP: 10 mmHg Left Ventriculography Findings: * The LV gram was not performed. The LVEDP was 10 mmHg. Pressures Phase:Rest AO : 125 / 70 ( 92 ) @ 8:27:00 AM 123 / 69 ( 92 ) @ 8:27:00 AM 228 / 114 ( 118 ) @ 8:33:00 AM 132 / 98 ( 98 ) @ 8:52:00 AM 125 / 109 ( 96 ) @ 8:53:00 AM LV : 122 / 2 / 10 @ 8:27:00 AM 125 / 3 / 12 @ 8:27:00 AM Valves Phase:DefaultPhase AV : 0.0 @ 9:12:24 AM AV Mean Gradient: 0.0 @ 9:12:24 AM Clinical Evaluation EBL: 5mL-10mL Procedural Details Pre-Procedure Time Out. Identified patient by full name and date of as verbalized by the patient/guarantor. Does the consent match the physician's order: Yes. Accurate & Complete Informed Consent: Yes. Inpatient/Outpatient History & Physical on Chart: Yes. If H&P is completed, is and addenduem needed: No; If yes, is the addendum complete: N/A. Visualize and Verify Site with Patient/Guarantor: N/A. Relevant Radiology Images available: Yes. Pre-op teaching completed and patient verbalized understanding. The risks, benefits, and alternatives of sedation and/or procedure were discussed by physician. The patient agrees to continue. Procedure started. Physician arrived. Current Diagnosis : Chest Pain. [facility] Clinical Fraility Score: 3: Managing Well. Genetics Nurse Indications: Suspected CAD. Chest Pain Symptom Assessment: Typical Angina Symptoms. Correct patient, site and procedure confirmed by cath team. Current diagnosis: Chest Pain. PERRLA. Strong, equal hand lip reading teacher bilaterally. Lungs clear x 5 lobes. IV Site on Arrival: 20 gauge in the left anticubital. IV Fluids: 0.9% NaCl at KVO. 0 mL infused prior to forestry laborer. Pre Procedural Pulses: bilateral dorsalis pedis was 2+. Pre Procedural Pulses: bilateral posterior tibial was 3+. Pre Procedural Pulses: bilateral radial was 3+. Oxygen started at 2liters/min via nasal canula. right groin was prepped with chloroprep then draped in the usual sterile fashion. right radial was prepped with chloroprep then draped in the usual sterile fashion. Baseline sample Acquired. HR: 78 BPM. Physician scrubbed in. Immediate Pre-Procedure Time Out. Correct Patient: Yes; Correct Procedure: Yes; Correct Site: Yes; Correct Patient Position: Yes; Correct Supplies: Yes; Dried Flammable Prep: Yes; Blood Products Available: N/A;. Lidocaine 1% infiltrated to the right radial. Arterial access obtained. A 5 north [place] Paresh catheter in over wire. Multiple views taken of left coronary artery. Catheter removed over the exchange wire. A 5 [place] k[place] JR4 catheter in over wire. Multiple views taken of right coronary artery. EDP Sample taken: LV 122/2,10; HR: 63 BPM; SpO2: 96%. Pullback taken: LV 125/3,12; AO 125/70(92); Mean: 0mmHg, Peak to Peak: 0mmHg, SEP: 6sec/min; HR: 61 BPM; SpO2: 96%. Physician scrubbed out. Catheter hooked up to heparnized saline at KVO to maintain patency. Dr. Dominguez scrubbed in to perform intervention. 6 north korean XB 3.5 guide catheter was inserted over the wire. Runthrough guidewire was advanced through the guide catheter to lesion in the mid LAD. ACT drawn. Results 214 seconds. Therapeutic limits - pre-heparin administration 90-150 seconds and monitoring heparin during a vascular procedure >250 seconds. Wire out. BMW guidewire was advanced through the guide catheter to lesion in the mid Circ. Runthrough wire out. Inflation number : 1 A AB TREK 2.50X12 RX BALLOON was prepped and advanced across the Mid CX , then inflated to 12 YAYA for 0:15 seconds. Inflation number: 2 The AB TREK 2.50X12 RX BALLOON was reinflated across the Mid CX, to 14 YAYA for 0:12 seconds. Balloon out. Inflation Number : 3 A YOVANNY Crandall LIZA 3.0X15 SAI -Lot Number# _[id number] EXP: 04/03/2027 was prepped and advanced across the Mid CX. The stent was deployed at 12 YAYA for 0:17 seconds. Stent balloon out over wire. Inflation number : 4 A MDT MITCH EUPHORA RX [id number] BALLOON was prepped and advanced across the Mid CX , then inflated to 8 YAYA for 0:18 seconds. Inflation number: 5 The MDT NC EUPHORA RX [id number] BALLOON was reinflated across the Mid CX, to 8 YAYA for 0:15 seconds. Inflation number: 6 The MDT NC EUPHORA RX [id number] BALLOON was reinflated across the Mid CX, to 10 YAYA for 0:19 seconds. Results checked. Inflation number: 7 The MDT NC EUPHORA RX [id number] BALLOON was reinflated across the Mid CX, to 14 YAYA for 0:23 seconds. Balloon out. Results checked. Wire out. ACT drawn. Results 246 seconds. Therapeutic limits - pre-heparin administration 90-150 seconds and monitoring heparin during a vascular procedure >250 seconds. Guide catheter out. Physician scrubbed out. A TR Band was successful obtaining hemostatsis at the Right Radial artery insertion site. Vital chart was stopped. Post Procedure: Pulses reassessed and unchanged. PERRLA. Strong, equal hand lip reading teacher bilaterally. No VTE prophylaxis required. Medication's Wasted: Lidocaine 1% = 18 mL. Medication's Wasted: Nitro = 49.8 mcg. Medication's Wasted: Verapamil = 5 mg. Medication's Wasted: Other = Fentanyl 50 mcg. Total IV fluids: 200 mL. Post-op diagnosis: Stent to CX. Complications: None. Estimated blood loss: 5mL-10mL. Responsiveness - Normal response to verbal stimuli; alert and oriented, PERRLA. Airway - Unaffected, no intervention required; spontaneous ventilation. Circulation: W/N/L, pulses unchanged. Nausea/Vomiting: No. Procedure completed. Patient transferred by wheelchair to 1st floor. Access Site Site: Right Radial artery Sheath Size: 6 Fr Hemostasis Method: TR Band Hemostasis Success: Successful Procedure Medications Start: 8:01 AM Stop: 8:01 AM Medication: Versed Amount: 1 mg Route: I.V. Start: 8:01 AM Stop: 8:01 AM Medication: Fentanyl Amount: 50 mcg Route: I.V. Start: 8:15 AM Stop: 8:15 AM Medication: Nitrogylcerin Amount: 200 mcg Route: I.A. Start: 8:16 AM Stop: 8:16 AM Medication: Heparin Amount: 5000 units Route: I.V. Start: 8:15 AM Stop: 8:15 AM Medication: Versed Amount: 1 mg Route: I.V. Start: 8:29 AM Stop: 8:29 AM Medication: Versed Amount: 1 mg Route: I.V. Start: 8:28 AM Stop: 8:28 AM Medication: 0.9% Saline Amount: 250 ml Route: I.V. bolus Start: 8:41 AM Stop: 8:41 AM Medication: Heparin Amount: 4000 units Route: I.V. Start: 8:52 AM Stop: 8:52 AM Medication: Versed Amount: 1 mg Route: I.V. Start: 9:03 AM Stop: 9:03 AM Medication: Plavix Amount: 300 mg Route: P.O. Start: 9:10 AM Stop: 9:10 AM Medication: Heparin Amount: 2000 units Route: I.V. I, the attending physician, have reviewed and verified all procedure medications. Yes, all medications given per verbal order History/Risk Factors Hypertension: Yes Dyslipidemia: Yes Peripheral Arterial Disease (PAD): No Myocardial Infarction (ME): No Obesity: No Renal Disease: No Tobacco Use: Never Prior Interventions PCI: No CABG: No Valve Surgery: No Report Signatures Interventional Workflow Finalized by Celine Dominguez MD on 08/31/2025 06:20 PM Diagnostic Workflow Finalized by Dr Jovita Castle MD [facility] on 08/28/2025 11:56 AM
--- NOTE | 2025-08-28 09:10 | PM.PROC ---
Procedure Note: Date of procedure: 08/28/25 Pre-procedure diagnosis: Angina Post-procedure diagnosis: same Procedure: Left heart cath was performed by Dr. Castle. Patient was noted to have mid to high grade 80% torturous stenosis of the mid circumflex artery PCI of the mid circumflex artery with drug-eluting stent placement 3.0 x 15 mm Mcnabb which was postdilated with three 5 x 8 mm noncompliant balloon. Excellent angiographic result with VILMA-3 flow was noted. Patient tolerated procedure well Plan: Continue dual antiplatelet therapy in the form of clopidogrel and aspirin for at least 1 year. Continue IV fluid 100 mL/h for 500 mL Radial band as per protocol Full note to be dictated Possible discharge tomorrow Coding Level of Care Code Acute Code for Brittney Fwmaria eugenia
--- NOTE | 2025-08-28 10:10 | PC.NURSE ---
patient arrived on the floor at 0951am. Patient has intact TR band with no hematoma. Jenny gave bedside report.
[2025-08-28] MEDS: ATORVASTATIN 20 MG TABLET PO (20:31)
[2025-08-29 01:00] VITALS: BP 127/73; PULSE 57; RESP 27
[2025-08-29 01:32] VITALS: BP 127/73; PULSE 54; RESP 17; O2SAT 97
[2025-08-29 04:07] VITALS: BP 129/71; PULSE 65; RESP 30; TEMP 36.8; O2SAT 97
[2025-08-29 04:59] VITALS: BP 129/71
[2025-08-29 05:00] VITALS: BP 129/71; PULSE 56; RESP 20
--- NOTE | 2025-08-29 06:46 | P.PN_ITS ---
Subjective Subjective: Patient underwent left heart catheterization with a left and right coronary angiogram yesterday. He was found to have a high-grade lesion in the circumflex artery. He underwent PCI of this lesion. He had an uneventful postprocedure course. He has no chest pain or palpitations. No unusual shortness of breath. Telemetry shows sinus rhythm with no significant arrhythmias. Vital signs are remaining stable. The radial arterial puncture site has no bleeding or hematoma. Medications: Medication Review Details: Current Medications Acetaminophen (Acetaminophen 325 Mg Tablet) 650 mg PO Q6H PRN PRN Reason: MILD PAIN Al Hydrox/Mg Hydrox/Simethicone (Axnm-Dhw-Gryoqdbcs-Rosana 30 Ml Udc) 30 ml PO Q15M PRN PRN Reason: INDIGESTION Alprazolam (Alprazolam 0.25 Mg Tablet) 0.25 mg PO TID PRN PRN Reason: ANXIETY Amlodipine Besylate (Amlodipine 5 Mg Tablet) 2.5 mg PO DAILY [facility] Last Admin: 08/29/25 05:00 Dose: 2.5 mg Aspirin (Aspirin 81 Mg Ec Tablet) 81 mg PO DAILY [facility] Last Admin: 08/29/25 04:59 Dose: 81 mg Aspirin (Aspirin 81 Mg Ec Tablet) 81 mg PO DAILY [facility] Last Admin: 08/29/25 05:03 Dose: Not Given Atorvastatin Calcium (Atorvastatin 20 Mg Tablet) 20 mg PO BEDTIME [facility] Last Admin: 08/28/25 20:31 Dose: 20 mg Atropine Sulfate (Atropine 1 Mg/Ml Sdv 1 Ml) 0.5 mg IVP PRN PRN PRN Reason: Symptomatic bradycardia Clopidogrel Bisulfate (Clopidogrel 75 Mg Tablet) 75 mg PO QPM [facility] Last Admin: 08/28/25 18:08 Dose: 75 mg Clopidogrel Bisulfate (Clopidogrel 75 Mg Tablet) 75 mg PO DAILY [facility] Last Admin: 08/29/25 05:03 Dose: 75 mg Fentanyl (Fentanyl 50 Mcg/Ml Inj 2ml) 50 mcg IVP PRN PRN PRN Reason: Prior to sheath removal Sodium Chloride (Sodium Chloride 0.9%) 1,000 mls @ 100 mls/hr IV .Q10H [facility] Last Admin: 08/29/25 05:08 Dose: Not Given Losartan Potassium (Losartan 50 Mg Tablet) 50 mg PO BID [facility] Last Admin: 08/29/25 04:59 Dose: 50 mg Magnesium Hydroxide (Magnesium Hydroxide 30 Ml Udc) 30 ml PO DAILY PRN PRN Reason: CONSTIPATION Metoprolol Tartrate (Metoprolol Tartrate 25 Mg Tablet) 12.5 mg PO BID [facility] Last Admin: 08/29/25 04:59 Dose: 12.5 mg Naloxone HCl (Naloxone 0.4 Mg/Ml Sdv) 0.1 mg IVP Q2M PRN PRN Reason: RESPIRATORY RATE < 8/MIN Nitroglycerin (Nitroglycerin 0.4 Mg Sublingual Tablet) 0.4 mg SUBLINGUAL Q5M PRN PRN Reason: CHEST PAIN Nitroglycerin (Nitroglycerin 0.4 Mg Sublingual Tablet) 0.4 mg SUBLINGUAL Q5M PRN PRN Reason: CHEST PAIN Pantoprazole Sodium (Pantoprazole Dr 40 Mg Tablet) 40 mg PO DAILY [facility] Last Admin: 08/29/25 05:00 Dose: 40 mg Tamsulosin HCl (Tamsulosin 0.4 Mg Capsule) 0.4 mg PO BEDTIME [facility] Last Admin: 08/28/25 20:31 Dose: 0.4 mg Temazepam (Temazepam 15 Mg Capsule) 15 mg PO BEDTIME PRN PRN Reason: INSOMNIA Vitals/I&O/Wt Last Vital Signs Temp 98.2 F 08/29/25 04:07 Pulse 56 L 08/29/25 05:00 Resp 20 H 08/29/25 05:00 BP 129/71 08/29/25 05:00 Pulse Ox 97 08/29/25 04:07 O2 Del Method Room Air 08/29/25 04:07 Weight last 48 hrs Weight 220 lb Physical Exam Narrative: GENERAL: The patient is alert and oriented times three. Not in any acute distress. HEENT: No significant pallor, icterus or lymphadenopathy.Oral cavity: There are no mucous membrane lesions. NECK: Trachea appears to be central. No masses noted. No JVD or thyromegaly appreciated. RESPIRATORY: Chest is symmetrical. No intercostals muscle retraction or any accessory muscle activation. There is no chest wall tenderness. Breath sounds are heard bilaterally. No rales or rhonchi heard. No evidence of any consolidation. BREASTS: Deferred. HEART: The heart sounds are normal. No S3 or S4. No significant murmurs. No pericardial rub ABDOMEN: No vessel pulsations or distention. No tenderness. No organomegaly appreciated. Bowel sounds are normally heard. : Deferred. RECTAL: Deferred. LYMPHATIC: No lymphadenopathy noted in the neck. EXTREMITIES: No edema or cyanosis. No clubbing. Radial arterial puncture site has no hematoma or bleeding. Good distal pulses. MUSCULOSKELETAL: No acute joint deformities or swelling SKIN: There are no significant rashes or ecchymosis NEUROPSYCHIATRIC: The patient is alert and oriented x3. Appears to be in a good mood. No tremors or rigidity noted. A&P Assessment and plan 1. ASHD (arteriosclerotic heart disease): The patient underwent cardiac catheterization yesterday which revealed high- grade lesion in the distal circumflex/OM 3. The lesion was intervened. Patient is remaining stable with no symptoms. Ambulating on telemetry without any complaints. 2. Primary hypertension: Currently normotensive. May continue on the current medications. 3. Mixed hyperlipidemia: Continue on the current medications. Will have the follow-up evaluation as scheduled. 4. History of varicose vein stripping: Continue on the current management. Currently the patient has no specific symptoms. Continue on the current treatment measures Plan: Since the patient cardiac status seems to be stable, he is going to be discharged home today. Patient will be seen at [facility] in 1-2 weeks. Patient will be seen by me in the office as scheduled . The importance of compliance to diet, medications and exercise were discussed. In the event of the patient developing chest pain ,unusual palpitations or any new symptoms, is advised to contact me or come to the hospital. PDMP PDMP Reviewed: Not Reviewed Attestations Medical Necessity Statement*: Discharge home today Coding Level of Care Code 55816 Diagnoses ASHD (arteriosclerotic heart disease) I25.10 Primary hypertension I10 Hypertension type: primary hypertension Mixed hyperlipidemia E78.2 Hyperlipidemia type: mixed hyperlipidemia History of varicose vein stripping Z98.890
[2025-08-29 07:41] VITALS: BP 143/79; PULSE 58
--- NOTE | 2025-08-29 08:05 | PC.NURSE ---
Patient ambulated [address]. Vitals remained stable, no chest pain, or shortness of breath noted.
== END 2025-08-29 08:41 | disposition home or self-care (01) ==
LOC: CCL 05:59 → CSU 09:18
PROVIDERS: Internal Medicine Cardiovascular Disease; PCP Nurse Practitioner Family; Visit Provider Internal Medicine Cardiovascular Disease
DX: I25.118 Atherosclerotic heart disease of native coronary artery with other forms of angina pectoris (principal); I10 Essential (primary) hypertension; E78.2 Mixed hyperlipidemia; Z79.82 Long term (current) use of aspirin; Z79.02 Long term (current) use of antithrombotics/antiplatelets; K21.9 Gastro-esophageal reflux disease without esophagitis; Z98.890 Other specified postprocedural states; Z82.49 Family history of ischemic heart disease and other diseases of the circulatory system
CPT/HCPCS: 36415; 85347; 93458; 99152; 99153; C1725; C1769; C1874; C1887; C1894; C9600; J1644; J2250; J3010; J3490; J7030; J9999; Q0163; Q9967

== ENCOUNTER → 2025-09-18 14:40 | Outpatient (BNVA) | payer MEDICARE, OTHER, SELFPAY | PROVIDERS: PCP Nurse Practitioner Family; Visit Provider Nurse Practitioner Family | DX: I25.10 Atherosclerotic heart disease of native coronary artery without angina pectoris (principal); E78.2 Mixed hyperlipidemia; I10 Essential (primary) hypertension; Z78.9 Other specified health status; M25.50 Pain in unspecified joint; M54.30 Sciatica, unspecified side; I25.2 Old myocardial infarction | CPT/HCPCS: 99214 ==